=== PATIENT | male | born 1965 | race Hispanic/Latino ===

== ENCOUNTER 2018-09-23 16:28 | Emergency (ER) | payer SELFPAY ==
[2018-09-23 16:44] VITALS: BP 117/76
[2018-09-23] MEDS ORDERED: NACL 0.9% 1000 ML 1,000 ML IV ONE (16:44)
[2018-09-23] MEDS ORDERED: NORCO 10/325 PO ONE (16:50)
[2018-09-23 17:00] LABS: Basophils # (Auto) 0.1 K/mm3 (0.0-0.1); Basophils % (Auto) 1.5 % (0.0-1.8); Eosinophils # (Auto) 0.1 K/mm3 (0.0-0.4); Lymphocytes # (Auto) 1.3 K/mm3 (1.2-5.4); Lymphocytes % (Auto) 21.9 % (13.4-35.0); Mean Corpuscular HGB Conc 30 % (32-34); Monocytes # (Auto) 0.5 K/mm3 (0.0-0.8); Monocytes % (Auto) 8.5 % (0.0-7.3); Platelet Count 498 K/mm3 (140-440); Red Blood Count 5.97 M/mm3 (3.65-5.03); Red Cell Distribution Width 19.8 % (13.2-15.2)
[2018-09-23 17:01] LABS: Hematocrit 39.6 % (35.5-45.6); Hemoglobin 11.9 gm/dl (11.8-15.2); Mean Corpuscular Volume 66 fl (84-94)
[2018-09-23 17:19] LABS: Alanine Aminotransferase 19 units/L (7-56); Albumin 4.6 g/dL (3.9-5); BUN/Creatinine Ratio 16; Blood Urea Nitrogen 11 mg/dL (9-20); Calcium 9.5 mg/dL (8.4-10.2); Hemolysis Index 7
--- NOTE | 2018-09-23 20:30 | Emergency Department Report ---
ED General Adult HPI - General Chief complaint: Nausea/Vomiting/Diarrhea Stated complaint: (R) LEG PAIN Time Seen by Provider: 09/23/18 19:09 Source: patient Mode of arrival: Wheelchair Limitations: No Limitations - History of Present Illness Initial comments: 52-year-old male with past medical history of COPD, hypertension, DPT with a question therapy as well as Shepherd filter and inguinal stents, left AKA, right BKA presents to emergency department complaining of pain to his right leg from just above his right knee down associated with some nausea is worried that he may have another blood clot in his leg. He is currently taking liquids which she has restarted the last 2 or 3 days but has been out of previous blood thinner about one week prior to starting that medication. Denies any shortness of breath, palpitations, hemoptysis, hematemesis, presyncope, headache, trauma. No numbness or tingling. He reports. Taken all the other occasion as prescribed. No complication. States that he also ran out of his Roxicodone, which is another reason for his visit to the emergency department due to follow up pain management for a refill, this coming week. Radiation: non-radiation Severity scale (0 -10): 8 - Related Data Home Medications Medication Instructions Recorded Confirmed Last Taken ALPRAZolam [Xanax TAB] 0.5 mg PO TID PRN 09/15/18 09/15/18 09/09/18 Amitriptyline [Elavil] 10 mg PO QHS 09/15/18 09/15/18 09/08/18 Aspirin [Aspirin BABY CHEW TAB] 81 mg PO QDAY 09/15/18 09/15/18 09/09/18 Gabapentin [Neurontin] 1,200 mg PO Q8HR 09/15/18 09/15/18 09/09/18 Methadone [Dolophine] 40 mg PO BID 09/15/18 09/15/18 Unknown Metoprolol Succinate [Toprol Xl] 50 mg PO BID 09/15/18 09/15/18 09/09/18 Tamsulosin HCl [Flomax] 0.4 mg PO DAILY 09/15/18 09/15/18 09/09/18 hydroCHLOROthiazide 12.5 mg PO DAILY 09/15/18 09/15/18 09/09/18 [Hydrochlorothiazide] Previous Rx's Medication Instructions Recorded Last Taken Type Apixaban [Eliquis] 5 mg PO BID 30 Days tablet 09/17/18 Unknown Rx Apixaban [Eliquis] 10 mg PO BID #28 tablet 09/17/18 Unknown Rx oxyCODONE [Roxicodone TAB] 30 mg PO Q4H PRN #7 tablet 09/17/18 Unknown Rx Allergies Allergy/AdvReac Type Severity Reaction Status Date / Time No Known Allergies Allergy Unverified 09/15/18 10:10 ED Review of Systems ROS: Stated complaint: (R) LEG PAIN Other details as noted in HPI Constitutional: denies: chills, fever Eyes: denies: eye pain, eye discharge, vision change ENT: denies: ear pain, throat pain Respiratory: denies: cough, shortness of breath, wheezing Cardiovascular: denies: chest pain, palpitations Endocrine: no symptoms reported Gastrointestinal: denies: abdominal pain, nausea, diarrhea Genitourinary: denies: urgency, dysuria Musculoskeletal: denies: back pain, joint swelling, arthralgia Skin: denies: rash, lesions Neurological: denies: headache, weakness, paresthesias Psychiatric: denies: anxiety, depression Hematological/Lymphatic: denies: easy bleeding, easy bruising ED Past Medical Hx - Past Medical History Hx Hypertension: Yes Hx Diabetes: Yes Hx Deep Vein Thrombosis: Yes Hx COPD: Yes Additional medical history: PVD - Surgical History Past Surgical History?: Yes Additional Surgical History: left AKA. right BKA - Social History Smoking Status: Never Smoker Substance Use Type: None - Medications Home Medications: Home Medications Medication Instructions Recorded Confirmed Last Taken Type ALPRAZolam [Xanax TAB] 0.5 mg PO TID PRN 09/15/18 09/15/18 09/09/18 History Amitriptyline [Elavil] 10 mg PO QHS 09/15/18 09/15/18 09/08/18 History Aspirin [Aspirin BABY CHEW TAB] 81 mg PO QDAY 09/15/18 09/15/18 09/09/18 History Gabapentin [Neurontin] 1,200 mg PO Q8HR 09/15/18 09/15/18 09/09/18 History Methadone [Dolophine] 40 mg PO BID 09/15/18 09/15/18 Unknown History Metoprolol Succinate [Toprol Xl] 50 mg PO BID 09/15/18 09/15/18 09/09/18 History Tamsulosin HCl [Flomax] 0.4 mg PO DAILY 09/15/18 09/15/18 09/09/18 History hydroCHLOROthiazide 12.5 mg PO DAILY 09/15/18 09/15/18 09/09/18 History [Hydrochlorothiazide] Apixaban [Eliquis] 5 mg PO BID 30 Days tablet 09/17/18 Unknown Rx Apixaban [Eliquis] 10 mg PO BID #28 tablet 09/17/18 Unknown Rx oxyCODONE [Roxicodone TAB] 30 mg PO Q4H PRN #7 tablet 09/17/18 Unknown Rx ED Physical Exam - General Limitations: No Limitations General appearance: alert, in no apparent distress, other - Head Head exam: Present: atraumatic, normocephalic - Eye Eye exam: Present: normal appearance, PERRL, EOMI Pupils: Present: normal accommodation - ENT ENT exam: Present: normal exam, mucous membranes moist - Neck Neck exam: Present: normal inspection, full ROM. Absent: tenderness, lymphadenopathy - Respiratory Respiratory exam: Present: normal lung sounds bilaterally. Absent: respiratory distress, wheezes, rales, rhonchi, chest wall tenderness, accessory muscle use, decreased breath sounds - Cardiovascular Cardiovascular Exam: Present: regular rate, normal rhythm. Absent: systolic murmur, diastolic murmur, rubs, gallop - GI/Abdominal GI/Abdominal exam: Present: soft, normal bowel sounds - Rectal Rectal exam: Present: deferred - Extremities Exam Extremities exam: Present: normal inspection, other (right BKA. No cellulitis noted. No swelling. No masses appreciated. Normal sensation) - Back Exam Back exam: Present: normal inspection, full ROM - Neurological Exam Neurological exam: Present: alert, oriented X3, CN II-XII intact - Psychiatric Psychiatric exam: Present: normal affect, normal mood - Skin Skin exam: Present: warm, dry, intact, normal color. Absent: rash ED Course Vital Signs 09/23/18 16:41 Temperature 97.4 F L Pulse Rate 78 Respiratory 18 Rate Blood Pressure 117/76 O2 Sat by Pulse 97 Oximetry - Consultations Consultation #1: 09/23/18 20:34 Case was discussed with Dr. Stinson. Patient BKTaylor and AKA. His Shepherd filter was primary suspicion for a deep 2 cm suspicion pain management. Patientstates this present time. The patient already treated for a DVT pain. We'll have him follow up with his primary care provider/pain management ED Medical Decision Making - Lab Data Result diagrams: 09/23/18 16:50 09/23/18 16:50 Critical care attestation.: If time is entered above; I have spent that time in minutes in the direct care of this critically ill patient, excluding procedure time. ED Disposition Clinical Impression: Chronic pain Disposition: DC-01 TO HOME OR SELFCARE Is pt being admited?: No Does the pt Need Aspirin: No Condition: Stable Instructions: Chronic Pain (ED) Referrals: PRIMARY CARE,MD [Primary Care Provider] - 3-5 Days (Please keep appointment with her chronic pain management for refill of your pain medication and further evaluation of-year-old chronic pain.)
[2018-09-23] MEDS ORDERED: SUBLIMAZE IM STA (20:31)
[2018-09-23] MEDS ORDERED: TORADOL IM ONE (20:43)
[2018-09-23] MEDS ORDERED: ZOFRAN ODT PO ONE (20:56)
== END 2018-09-23 21:01 | disposition home or self-care (01) ==
LOC: ED 16:28
DX: G89.4 Chronic pain syndrome (principal); M79.604 Pain in right leg; J44.9 Chronic obstructive pulmonary disease, unspecified; E11.9 Type 2 diabetes mellitus without complications; I73.9 Peripheral vascular disease, unspecified; I10 Essential (primary) hypertension; Z89.612 Acquired absence of left leg above knee; Z89.511 Acquired absence of right leg below knee; Z88.8 Allergy status to other drugs, medicaments and biological substances; Z86.718 Personal history of other venous thrombosis and embolism; Z79.82 Long term (current) use of aspirin
CPT/HCPCS: 36415; 80053; 85025; 96372; 99283; J1885; J3010; Q0162

== ENCOUNTER 2018-09-25 09:09 | Emergency (ER) | payer SELFPAY ==
[2018-09-25] MEDS ORDERED: BENTYL IM ONE (09:35)
[2018-09-25] MEDS ORDERED: ZOFRAN IV ONE (09:35)
[2018-09-25] MEDS ORDERED: NACL 0.9% 1000 ML 1,000 ML IV ONE (09:35)
[2018-09-25 10:12] LABS: Basophils # (Auto) 0.1 K/mm3 (0.0-0.1); Basophils % (Auto) 1.6 % (0.0-1.8); Eosinophils % (Auto) 0.7 % (0.0-4.3); Hematocrit 38.1 % (35.5-45.6); Hemoglobin 11.8 gm/dl (11.8-15.2); Lymphocytes # (Auto) 1.1 K/mm3 (1.2-5.4); Lymphocytes % (Auto) 22.7 % (13.4-35.0); Mean Corpuscular HGB Conc 31 % (32-34); Monocytes # (Auto) 0.5 K/mm3 (0.0-0.8); Monocytes % (Auto) 9.6 % (0.0-7.3); Platelet Count 458 K/mm3 (140-440); Red Blood Count 5.73 M/mm3 (3.65-5.03)
[2018-09-25 10:13] LABS: Mean Corpuscular Volume 67 fl (84-94); Red Cell Distribution Width 20.4 % (13.2-15.2)
--- NOTE | 2018-09-25 10:27 | Emergency Department Report ---
ED N/V/D HPI - General Chief complaint: Nausea/Vomiting/Diarrhea Stated complaint: FLU LIKE Time Seen by Provider: 09/25/18 09:17 Source: patient, EMS Mode of arrival: Stretcher Limitations: No Limitations - History of Present Illness Initial comments: 52-year-old male presents to ED with complaint of nausea, vomiting, diarrhea 3 weeks. Patient states he isn't able to keep anything down. He states he believes he is withdrawing from his pain medication. Patient was on methadone and Roxicodone, but states has not had these medications in 3 weeks. Upon chart review, it appears patient was here one week ago for leg pain. Patient was discharged with prescription for Roxicodone, however states he was unable to get the prescription filled because he does not yet have Medicaid. MD complaint: nausea, vomiting, diarrhea, abdominal pain -: week(s) (3) Description of Vomiting: food contents, watery Description of Diarrhea: water Associated Abdominal Pain: Yes Location: diffuse Radiation: none Severity: mild Quality: cramping Consistency: intermittent Improves with: none Worsens with: none Context: other (opiate withdrawal) - Related Data Home Medications Medication Instructions Recorded Confirmed Last Taken ALPRAZolam [Xanax TAB] 0.5 mg PO TID PRN 09/15/18 09/15/18 09/09/18 Amitriptyline [Elavil] 10 mg PO QHS 09/15/18 09/15/18 09/08/18 Aspirin [Aspirin BABY CHEW TAB] 81 mg PO QDAY 09/15/18 09/15/18 09/09/18 Gabapentin [Neurontin] 1,200 mg PO Q8HR 09/15/18 09/15/18 09/09/18 Methadone [Dolophine] 40 mg PO BID 09/15/18 09/15/18 Unknown Metoprolol Succinate [Toprol Xl] 50 mg PO BID 09/15/18 09/15/18 09/09/18 Tamsulosin HCl [Flomax] 0.4 mg PO DAILY 09/15/18 09/15/18 09/09/18 hydroCHLOROthiazide 12.5 mg PO DAILY 09/15/18 09/15/18 09/09/18 [Hydrochlorothiazide] Previous Rx's Medication Instructions Recorded Last Taken Type Apixaban [Eliquis] 5 mg PO BID 30 Days tablet 09/17/18 Unknown Rx Apixaban [Eliquis] 10 mg PO BID #28 tablet 09/17/18 Unknown Rx oxyCODONE [Roxicodone TAB] 30 mg PO Q4H PRN #7 tablet 09/17/18 Unknown Rx Dicyclomine [Bentyl] 20 mg PO QID PRN #20 tablet 09/25/18 Unknown Rx Ondansetron [Zofran Odt] 4 mg PO Q8HR PRN #20 tab.rapdis 09/25/18 Unknown Rx Promethazine [Phenergan TAB] 25 mg PO Q6HR PRN #20 tab 09/25/18 Unknown Rx Allergies Allergy/AdvReac Type Severity Reaction Status Date / Time No Known Allergies Allergy Unverified 09/15/18 10:10 ED Review of Systems ROS: Stated complaint: FLU LIKE Other details as noted in HPI Comment: All other systems reviewed and negative Constitutional: denies: chills, fever Gastrointestinal: abdominal pain, nausea, vomiting, diarrhea ED Past Medical Hx - Past Medical History Hx Hypertension: Yes Hx Diabetes: Yes Hx Deep Vein Thrombosis: Yes Hx COPD: Yes Additional medical history: PVD - Surgical History Additional Surgical History: left AKA. right BKA - Social History Smoking Status: Never Smoker - Medications Home Medications: Home Medications Medication Instructions Recorded Confirmed Last Taken Type ALPRAZolam [Xanax TAB] 0.5 mg PO TID PRN 09/15/18 09/15/18 09/09/18 History Amitriptyline [Elavil] 10 mg PO QHS 09/15/18 09/15/18 09/08/18 History Aspirin [Aspirin BABY CHEW TAB] 81 mg PO QDAY 09/15/18 09/15/18 09/09/18 History Gabapentin [Neurontin] 1,200 mg PO Q8HR 09/15/18 09/15/18 09/09/18 History Methadone [Dolophine] 40 mg PO BID 09/15/18 09/15/18 Unknown History Metoprolol Succinate [Toprol Xl] 50 mg PO BID 09/15/18 09/15/18 09/09/18 History Tamsulosin HCl [Flomax] 0.4 mg PO DAILY 09/15/18 09/15/18 09/09/18 History hydroCHLOROthiazide 12.5 mg PO DAILY 09/15/18 09/15/18 09/09/18 History [Hydrochlorothiazide] Apixaban [Eliquis] 5 mg PO BID 30 Days tablet 09/17/18 Unknown Rx Apixaban [Eliquis] 10 mg PO BID #28 tablet 09/17/18 Unknown Rx oxyCODONE [Roxicodone TAB] 30 mg PO Q4H PRN #7 tablet 09/17/18 Unknown Rx Dicyclomine [Bentyl] 20 mg PO QID PRN #20 tablet 09/25/18 Unknown Rx Ondansetron [Zofran Odt] 4 mg PO Q8HR PRN #20 tab.rapdis 09/25/18 Unknown Rx Promethazine [Phenergan TAB] 25 mg PO Q6HR PRN #20 tab 09/25/18 Unknown Rx ED Physical Exam - General Limitations: No Limitations General appearance: alert, in no apparent distress - Head Head exam: Present: atraumatic, normocephalic - Eye Eye exam: Present: normal appearance - ENT ENT exam: Present: mucous membranes moist - Neck Neck exam: Present: normal inspection - Respiratory Respiratory exam: Present: normal lung sounds bilaterally. Absent: respiratory distress - Cardiovascular Cardiovascular Exam: Present: regular rate, normal rhythm - GI/Abdominal GI/Abdominal exam: Present: soft, tenderness (mild diffuse tenderness). Absent: distended, guarding, rebound - Extremities Exam Extremities exam: Present: other (amputations present bilateral lower ex tremities) - Neurological Exam Neurological exam: Present: alert, oriented X3 - Psychiatric Psychiatric exam: Present: normal affect, normal mood - Skin Skin exam: Present: warm, dry, intact, normal color ED Course Vital Signs 09/25/18 09/25/18 09/25/18 09:54 09:56 13:14 Temperature 97.7 F Pulse Rate 60 72 Respiratory 18 18 16 Rate Blood Pressure 117/79 112/72 [Left] O2 Sat by Pulse 99 99 99 Oximetry ED Medical Decision Making - Lab Data Result diagrams: 09/25/18 09:40 09/25/18 09:40 - Medical Decision Making Patient here in the ED for symptoms due to opiate withdrawal. Patient reports nausea, vomiting, diarrhea 3 weeks. However signs are normal, labs show no sign of dehydration, renal failure, hypokalemia. Patient given IV fluids, Zofran, Bentyl, 1 Percocet tab. Patient was admitted and discharged week ago. He is given a prescription for oxycodone, which he states he has been unable to get it filled due to financial issues. Patient will not be given another prescription for this medication. Advised the patient follow up with his regular doctor, return precautions given. - Differential Diagnosis hypokalemia, ARF, dehydration Critical care attestation.: If time is entered above; I have spent that time in minutes in the direct care of this critically ill patient, excluding procedure time. ED Disposition Clinical Impression: Vomiting and diarrhea, Opioid withdrawal Disposition: DC- TO HOME OR SELFCARE Is pt being admited?: No Condition: Stable Instructions: Opioid Withdrawal (ED) Prescriptions: Dicyclomine [Bentyl] 20 mg PO QID PRN #20 tablet PRN Reason: abdominal pain Ondansetron [Zofran Odt] 4 mg PO Q8HR PRN #20 tab.rapdis PRN Reason: Vomiting Promethazine [Phenergan TAB] 25 mg PO Q6HR PRN #20 tab PRN Reason: Nausea Referrals: PRIMARY CARE, [Primary Care Provider] - 3-5 Days Time of Disposition: 11:52
[2018-09-25 10:31] LABS: Alanine Aminotransferase 16 units/L (7-56); Albumin 4.5 g/dL (3.9-5); BUN/Creatinine Ratio 15; Bilirubin,Direct 0.3 mg/dL (0-0.2); Blood Urea Nitrogen 12 mg/dL (9-20); Calcium 9.6 mg/dL (8.4-10.2); Hemolysis Index 4
[2018-09-25] MEDS ORDERED: PERCOCET 5/325 PO ONE (11:19)
[2018-09-25 11:59] LABS: Bacteria,Urine 1+ /HPF (Negative); Bilirubin,Urine NEG (Negative); Blood,Urine NEG (Negative); Color,Urine Yellow (Yellow); Mucus,Urine FEW /HPF
[2018-09-25 13:49] VITALS: BP 112/72
== END 2018-09-25 13:50 | disposition home or self-care (01) ==
LOC: ED 09:09
DX: R11.2 Nausea with vomiting, unspecified (principal); R19.7 Diarrhea, unspecified; F11.120 Opioid abuse with intoxication, uncomplicated; I10 Essential (primary) hypertension; E11.9 Type 2 diabetes mellitus without complications; J44.9 Chronic obstructive pulmonary disease, unspecified; I73.9 Peripheral vascular disease, unspecified; Z86.718 Personal history of other venous thrombosis and embolism; Z79.82 Long term (current) use of aspirin; Z89.612 Acquired absence of left leg above knee; Z89.511 Acquired absence of right leg below knee
CPT/HCPCS: 36415; 80048; 80076; 81001; 83690; 85025; 96361; 96372; 96374; 99284; J0500; J2405; J7030

== ENCOUNTER 2018-10-05 15:54 | Inpatient (IN) | payer SELFPAY ==
--- NOTE | 2018-10-05 16:26 | Emergency Department Report ---
ED Lower Extremity HPI - General Chief Complaint: Abdominal Pain Stated Complaint: LT LEG PAIN Time Seen by Provider: 10/05/18 16:10 Source: patient, EMS Mode of arrival: Stretcher Limitations: Physical Limitation - History of Present Illness Initial Comments: She is 52-year-old male presents emergency room with complaints of left leg pain times one day and lower abdominal pain 1 day. Patient states that nausea and vomiting times a week. Patient states his pain is 7 out of 10 in both his abdomen and his lower leg. Patient denies trauma. 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 Patient st ates he is not taking liquids. Patient states he only blood thinner is taking his Plavix. Patient states the pain is better with rest and worse with palpation and movement. MD Complaint: other (left leg pain./ no trauma) -: Sudden Injury: Leg: Left Place: home Severity: severe Severity scale (0 -10): 10 Improves With: rest Worsens With: movement, palpation Associated Symptoms: unable to bear weight Treatments Prior to Arrival: NSAIDS - Related Data Home Medications Medication Instructions Recorded Confirmed Last Taken ALPRAZolam [Xanax TAB] 0.5 mg PO TID PRN 09/15/18 09/15/18 09/09/18 Amitriptyline [Elavil] 10 mg PO QHS 09/15/18 09/15/18 09/08/18 Aspirin [Aspirin BABY CHEW TAB] 81 mg PO QDAY 09/15/18 09/15/18 09/09/18 Gabapentin [Neurontin] 1,200 mg PO Q8HR 09/15/18 09/15/18 09/09/18 Methadone [Dolophine] 40 mg PO BID 09/15/18 09/15/18 Unknown Metoprolol Succinate [Toprol Xl] 50 mg PO BID 09/15/18 09/15/18 09/09/18 Tamsulosin HCl [Flomax] 0.4 mg PO DAILY 09/15/18 09/15/18 09/09/18 hydroCHLOROthiazide 12.5 mg PO DAILY 09/15/18 09/15/18 09/09/18 [Hydrochlorothiazide] Previous Rx's Medication Instructions Recorded Last Taken Type Apixaban [Eliquis] 5 mg PO BID 30 Days tablet 09/17/18 Unknown Rx Apixaban [Eliquis] 10 mg PO BID #28 tablet 09/17/18 Unknown Rx oxyCODONE [Roxicodone TAB] 30 mg PO Q4H PRN #7 tablet 09/17/18 Unknown Rx Dicyclomine [Bentyl] 20 mg PO QID PRN #20 tablet 09/25/18 Unknown Rx Ondansetron [Zofran Odt] 4 mg PO Q8HR PRN #20 tab.rapdis 09/25/18 Unknown Rx Promethazine [Phenergan TAB] 25 mg PO Q6HR PRN #20 tab 09/25/18 Unknown Rx Allergies Allergy/AdvReac Type Severity Reaction Status Date / Time No Known Allergies Allergy Unverified 09/15/18 10:10 ED Review of Systems ROS: Stated complaint: LT LEG PAIN Other details as noted in HPI Constitutional: denies: chills, fever Eyes: denies: eye pain, eye discharge, vision change ENT: denies: ear pain, throat pain Respiratory: denies: cough, shortness of breath, wheezing Cardiovascular: denies: chest pain, palpitations Endocrine: no symptoms reported Gastrointestinal: abdominal pain. denies: nausea, diarrhea Genitourinary: denies: urgency, dysuria Musculoskeletal: denies: back pain, joint swelling, arthralgia Skin: denies: rash, lesions Neurological: denies: headache, weakness, paresthesias Psychiatric: denies: anxiety, depression Hematological/Lymphatic: denies: easy bleeding, easy bruising ED Past Medical Hx - Past Medical History Previous Medical History?: Yes Hx Hypertension: Yes Hx Diabetes: Yes Hx Deep Vein Thrombosis: Yes Hx COPD: Yes Additional medical history: PVD - Surgical History Past Surgical History?: Yes Additional Surgical History: left AKA. right BKA , bilat lower extremity stents - Family History Family history: no significant - Social History Smoking Status: Never Smoker Substance Use Type: Alcohol - Medications Home Medications: Home Medications Medication Instructions Recorded Confirmed Last Taken Type ALPRAZolam [Xanax TAB] 0.5 mg PO TID PRN 09/15/18 09/15/18 09/09/18 History Amitriptyline [Elavil] 10 mg PO QHS 09/15/18 09/15/18 09/08/18 History Aspirin [Aspirin BABY CHEW TAB] 81 mg PO QDAY 09/15/18 09/15/18 09/09/18 History Gabapentin [Neurontin] 1,200 mg PO Q8HR 09/15/18 09/15/18 09/09/18 History Methadone [Dolophine] 40 mg PO BID 09/15/18 09/15/18 Unknown History Metoprolol Succinate [Toprol Xl] 50 mg PO BID 09/15/18 09/15/18 09/09/18 History Tamsulosin HCl [Flomax] 0.4 mg PO DAILY 09/15/18 09/15/18 09/09/18 History hydroCHLOROthiazide 12.5 mg PO DAILY 09/15/18 09/15/18 09/09/18 History [Hydrochlorothiazide] Apixaban [Eliquis] 5 mg PO BID 30 Days tablet 09/17/18 Unknown Rx Apixaban [Eliquis] 10 mg PO BID #28 tablet 09/17/18 Unknown Rx oxyCODONE [Roxicodone TAB] 30 mg PO Q4H PRN #7 tablet 09/17/18 Unknown Rx Dicyclomine [Bentyl] 20 mg PO QID PRN #20 tablet 09/25/18 Unknown Rx Ondansetron [Zofran Odt] 4 mg PO Q8HR PRN #20 tab.rapdis 09/25/18 Unknown Rx Promethazine [Phenergan TAB] 25 mg PO Q6HR PRN #20 tab 09/25/18 Unknown Rx ED Physical Exam - General Limitations: Physical Limitation General appearance: alert, in no apparent distress - Head Head exam: Present: atraumatic, normocephalic - Eye Eye exam: Present: normal appearance, PERRL Pupils: Present: normal accommodation - ENT ENT exam: Present: mucous membranes dry - Neck Neck exam: Present: normal inspection - Respiratory Respiratory exam: Present: normal lung sounds bilaterally. Absent: respiratory distress - Cardiovascular Cardiovascular Exam: Present: regular rate, normal rhythm. Absent: systolic murmur, diastolic murmur, rubs, gallop - GI/Abdominal GI/Abdominal exam: Present: soft, tenderness (devorah LQ ttp), normal bowel sounds - Rectal Rectal exam: Present: deferred - Extremities Exam Extremities exam: Present: other (left lower extremity [id number] amputation. Left lower extremity tenderness to palpation. Right lower extremity below the knee amputation.) - Back Exam Back exam: Present: normal inspection - Neurological Exam Neurological exam: Present: alert, oriented X3 - Psychiatric Psychiatric exam: Present: normal affect, normal mood - Skin Skin exam: Present: warm, dry, intact, normal color. Absent: rash ED Course Vital Signs 10/05/18 10/05/18 10/05/18 16:02 16:03 16:04 Pulse Rate 79 80 77 Respiratory 11 L 19 17 Rate Blood Pressure 130/88 130/88 O2 Sat by Pulse Oximetry 10/05/18 10/05/18 10/05/18 16:06 16:08 16:10 Pulse Rate 74 82 77 Respiratory 21 19 21 Rate Blood Pressure 130/88 130/88 130/88 O2 Sat by Pulse 99 99 98 Oximetry 10/05/18 10/05/18 10/05/18 16:12 16:14 16:16 Pulse Rate 86 85 75 Respiratory 17 28 H 18 Rate Blood Pressure 130/88 130/88 144/78 O2 Sat by Pulse 99 99 100 Oximetry 10/05/18 10/05/18 10/05/18 16:18 16:20 16:22 Pulse Rate 68 70 87 Respiratory 12 21 27 H Rate Blood Pressure 144/78 144/78 144/78 O2 Sat by Pulse 100 95 100 Oximetry 10/05/18 10/05/18 10/05/18 16:24 16:26 16:28 Pulse Rate 62 82 78 Respiratory 17 12 19 Rate Blood Pressure 144/78 144/78 144/78 O2 Sat by Pulse 98 99 99 Oximetry 10/05/18 10/05/18 10/05/18 16:30 16:32 16:34 Pulse Rate 75 74 70 Respiratory 17 22 16 Rate Blood Pressure 138/85 138/85 138/85 O2 Sat by Pulse 99 99 98 Oximetry 10/05/18 10/05/18 10/05/18 16:36 16:38 16:40 Pulse Rate 70 69 Respiratory 12 14 Rate Blood Pressure 138/85 138/85 144/78 O2 Sat by Pulse 100 97 98 Oximetry 10/05/18 10/05/18 10/05/18 16:42 16:44 16:46 Pulse Rate Respiratory Rate Blood Pressure 144/78 144/78 144/78 O2 Sat by Pulse 98 98 99 Oximetry 10/05/18 10/05/18 10/05/18 16:48 16:50 16:52 Pulse Rate Respiratory Rate Blood Pressure 144/78 144/78 144/78 O2 Sat by Pulse 97 95 96 Oximetry 10/05/18 10/05/18 10/05/18 16:54 16:56 16:58 Pulse Rate Respiratory Rate Blood Pressure 144/78 144/78 144/78 O2 Sat by Pulse 96 95 95 Oximetry 10/05/18 10/05/18 10/05/18 17:00 17:02 17:04 Pulse Rate Respiratory Rate Blood Pressure 144/78 144/78 144/78 O2 Sat by Pulse 95 94 92 Oximetry 10/05/18 10/05/18 10/05/18 17:06 17:07 22:08 Pulse Rate 74 Respiratory 20 Rate Blood Pressure 144/78 144/78 122/76 O2 Sat by Pulse 96 99 Oximetry 10/05/18 10/05/18 10/05/18 22:10 22:12 22:14 Pulse Rate 77 81 77 Respiratory 20 19 17 Rate Blood Pressure 122/76 122/76 122/76 O2 Sat by Pulse Oximetry 10/05/18 10/05/18 10/05/18 22:16 22:18 22:20 Pulse Rate 81 82 84 Respiratory 14 32 H 18 Rate Blood Pressure 122/76 122/76 122/76 O2 Sat by Pulse Oximetry 10/05/18 10/05/18 10/05/18 22:22 22:24 22:26 Pulse Rate 71 73 74 Respiratory 21 14 17 Rate Blood Pressure 122/76 122/76 122/76 O2 Sat by Pulse Oximetry 10/05/18 10/05/18 10/05/18 22:28 22:30 22:32 Pulse Rate 76 82 78 Respiratory 16 18 18 Rate Blood Pressure 122/76 127/78 127/78 O2 Sat by Pulse Oximetry 10/05/18 10/05/18 10/05/18 22:34 22:36 22:38 Pulse Rate 76 72 79 Respiratory 20 22 19 Rate Blood Pressure 127/78 127/78 127/78 O2 Sat by Pulse Oximetry 10/05/18 10/05/18 10/05/18 22:40 22:42 22:44 Pulse Rate 80 77 78 Respiratory 20 18 18 Rate Blood Pressure 127/78 127/78 127/78 O2 Sat by Pulse Oximetry 10/05/18 10/05/18 10/05/18 22:46 22:48 22:50 Pulse Rate 78 79 74 Respiratory 20 20 12 Rate Blood Pressure 127/78 127/78 127/78 O2 Sat by Pulse Oximetry 10/05/18 10/05/18 10/05/18 22:52 22:54 22:56 Pulse Rate 75 76 70 Respiratory 20 18 22 Rate Blood Pressure 127/78 127/78 127/78 O2 Sat by Pulse Oximetry 10/05/18 10/05/18 10/05/18 22:58 23:00 23:01 Pulse Rate 81 74 75 Respiratory 19 24 22 Rate Blood Pressure 127/78 131/79 131/79 O2 Sat by Pulse Oximetry 10/05/18 10/05/18 10/05/18 23:02 23:04 23:06 Pulse Rate 76 77 75 Respiratory 20 18 20 Rate Blood Pressure 131/79 131/79 131/79 O2 Sat by Pulse Oximetry 10/05/18 10/05/18 10/05/18 23:08 23:10 23:12 Pulse Rate 85 74 77 Respiratory 15 18 14 Rate Blood Pressure 131/79 131/79 131/79 O2 Sat by Pulse Oximetry 10/05/18 10/05/18 10/05/18 23:14 23:16 23:18 Pulse Rate 74 75 80 Respiratory 19 15 21 Rate Blood Pressure 131/79 131/79 131/79 O2 Sat by Pulse Oximetry 10/05/18 10/05/18 10/05/18 23:20 23:22 23:24 Pulse Rate 72 71 74 Respiratory 20 22 24 Rate Blood Pressure 131/79 131/79 131/79 O2 Sat by Pulse 98 98 Oximetry 10/05/18 10/05/18 10/05/18 23:26 23:28 23:30 Pulse Rate 75 77 73 Respiratory 21 18 21 Rate Blood Pressure 131/79 131/79 125/72 O2 Sat by Pulse 97 98 96 Oximetry 10/05/18 10/05/18 10/05/18 23:32 23:34 23:36 Pulse Rate 79 73 71 Respiratory 20 17 20 Rate Blood Pressure 125/72 125/72 125/72 O2 Sat by Pulse Oximetry 10/05/18 10/05/18 10/05/18 23:38 23:40 23:42 Pulse Rate 73 72 74 Respiratory 20 17 20 Rate Blood Pressure 125/72 125/72 125/72 O2 Sat by Pulse Oximetry 10/05/18 23:44 Pulse Rate 71 Respiratory 18 Rate Blood Pressure 125/72 O2 Sat by Pulse Oximetry - Reevaluation(s) Reevaluation #1: Discussed all results and plan of care with patient. Patient agrees to plan of care and admission. 10/05/18 21:47 - Consultations Consultation #1: Vascular Surgery consult. Dr. Espino to see the patient in the morning. She wants patient placed on heparin drip and admitted to the hospitalist service. 10/05/18 21:40 Consultation #2: Hospice consult for admission. Hospitalist to admit patient assume care patient. 10/05/18 21:47 ED Lower Extremity MDM - Lab Data Result diagrams: 10/05/18 21:50 10/05/18 16:54 - Radiology Data Radiology results: report reviewed FINAL REPORT PROCEDURE: CT ABDOMEN PELVIS W CON TECHNIQUE: Computerized axial tomography of the abdomen and pelvis was performed after the IV injection of iodinated nonionic contrast. HISTORY: Abdominal Pain COMPARISON: No prior studies are available for comparison. FINDINGS: Visualized lower thorax: No significant abnormality. Liver: Normal size and attenuation. There is a 3 centimeter low-density area along the falciform ligament suggesting focal fatty infiltration. Spleen: Normal size and attenuation. Gallbladder and biliary system: Normal. Pancreas: Normal. Adrenals: Normal. Kidneys: There are no kidney stones or ureteral stones. There is no hydronephrosis.. GI tract: There is no bowel obstruction, colitis or enteritis. The appendix is slightly thickened at approximately 7 millimeters. However there are no inflammatory changes. Clinical correlation suggested.. Lymph nodes and mesentery: Normal. Vasculature: There is complete occlusion of the left common and external iliac arteries and common femoral artery. There is no aortic aneurysm. There is IVC filter.. Bladder: Normal. Reproductive organs: Normal. Peritoneum: There is no ascites or free air, abscess or adenopathy.. Musculoskeletal structures: No significant abnormality. Other: None. IMPRESSION: There is a 3 centimeter low-density area along the falciform ligament suggesting focal fatty infiltration. There are no kidney stones or ureteral stones. There is no hydronephrosis.. There is no bowel obstruction, colitis or enteritis. The appendix is slightly thickened at approximately 7 millimeters. However there are no inflammatory changes. Clinical correlation suggested.. There is complete occlusion of the left common and external iliac arteries and common femoral artery. There is no aortic aneurysm. There is IVC filter.. There is no ascites or free air, abscess or adenopathy.. AYAD MASCORRO Male : 1965 MedRec# [id number] 10/05/18 19:08 - Radiology Dept. Note by SUNNI PEREZ [facility] Num: [id number] : 1965 Patient Age: 52 P[address] Bonilla right leg partial compression SFV dist to popv. Possible thrombus in sfv and popv. on left leg Partial comp at cfv to sfv to dfv; possible thrombus cfv to sfv to dfv. Initialized on 10/05/18 19:08 - END OF NOTE - Medical Decision Making H and is 52-year-old mane's emergency room with complaints of abdominal pain and left leg pain. Patient underwent multiple arterial occlusions and DVTs. Patient was admitted to the hospitalist service for further evaluation treatme nt. Hospitalist consultation done. Vascular surgery consultation done. Labs unremarkable except for anemia. Full report given to hospitalist group CTA done and shows femoral and iliac occlusions. DVT study done with Doppler and shows multiple DVTs and SVTs. - Differential Diagnosis DVT. PAD. Occlusions. Abdominal pain. Leg pain. Critical Care Time: Yes Critical care attestation.: If time is entered above; I have spent that time in minutes in the direct care of this critically ill patient, excluding procedure time. Critical Care Time: 45 minutes ED Disposition Clinical Impression: Femoral artery occlusion, left, Leg pain, left, PAD (peripheral artery disease), Arterial occlusion Abdominal pain Qualifiers: Abdominal location: generalized Qualified Code(s): R10.84 - Generalized abdominal pain DVT (deep venous thrombosis) Qualifiers: DVT location: lower extremity Affected thrombotic vein of extremity: other lower extremity vein Chronicity: acute Laterality: left Qualified Code(s): I82.492 - Acute embolism and thrombosis of other specified deep vein of left lower extremity Anemia Qualifiers: Anemia type: unspecified type Qualified Code(s): D64.9 - Anemia, unspecified Disposition: OP ADMIT IP TO THIS HOSP Is pt being admited?: Yes Does the pt Need Aspirin: No Condition: Critical Time of Disposition: 21:45
[2018-10-05] MEDS ORDERED: DILAUDID ONE ×2 (16:27→21:56)
[2018-10-05] MEDS ORDERED: DILAUDID IV ONE ×3 (16:30→22:06)
[2018-10-05 17:29] LABS: Basophils % (Auto) 0.9 % (0.0-1.8); Eosinophils # (Auto) 0.1 K/mm3 (0.0-0.4); Lymphocytes # (Auto) 1.2 K/mm3 (1.2-5.4); Lymphocytes % (Auto) 28.8 % (13.4-35.0); Mean Corpuscular HGB Conc 28 % (32-34); Mean Corpuscular Volume 70 fl (84-94); Monocytes # (Auto) 0.4 K/mm3 (0.0-0.8); Monocytes % (Auto) 9.1 % (0.0-7.3); Platelet Count 179 K/mm3 (140-440); Red Blood Count 5.05 M/mm3 (3.65-5.03)
[2018-10-05 17:30] LABS: Hematocrit 35.4 % (35.5-45.6); Hemoglobin 9.8 gm/dl (11.8-15.2); Red Cell Distribution Width 20.4 % (13.2-15.2)
[2018-10-05 17:48] LABS: Alanine Aminotransferase 24 units/L (7-56); Albumin 3.6 g/dL (3.9-5); BUN/Creatinine Ratio 20; Bilirubin,Direct 0.2 mg/dL (0-0.2); Blood Urea Nitrogen 12 mg/dL (9-20); Calcium 8.5 mg/dL (8.4-10.2); Hemolysis Index 15
--- NOTE | 2018-10-05 21:10 | Cat Scan Report ---
FINAL REPORT PROCEDURE: CT ABDOMEN PELVIS W CON TECHNIQUE: Computerized axial tomography of the abdomen and pelvis was performed after the IV inject ion of iodinated nonionic contrast. HISTORY: Abdominal Pain COMPARISON: No prior studies are available for comparison. FINDINGS: Visualized lower thorax: No significant abnormality. Liver: Normal size and attenuation. There is a 3 centimeter low-density area along the falciform liga ment suggesting focal fatty infiltration. Spleen: Normal size and attenuation. Gallbladder and biliary system: Normal. Pancreas: Normal. Adrenals: Normal. Kidneys: There are no kidney stones or ureteral stones. There is no hydronephrosis.. GI tract: There is no bowel obstruction, colitis or enteritis. The appendix is slightly thickened at approximately 7 millimeters. However there are no inflammatory changes. Clinical correlation suggeste d.. Lymph nodes and mesentery: Normal. Vasculature: There is complete occlusion of the left common and external iliac arteries and common fe moral artery. There is no aortic aneurysm. There is IVC filter.. Bladder: Normal. Reproductive organs: Normal. Peritoneum: There is no ascites or free air, abscess or adenopathy.. Musculoskeletal structures: No significant abnormality. Other: None. IMPRESSION: There is a 3 centimeter low-density area along the falciform ligament suggesting focal fatty infiltra tion. There are no kidney stones or ureteral stones. There is no hydronephrosis.. There is no bowel obstruction, colitis or enteritis. The appendix is slightly thickened at approximat saida 7 millimeters. However there are no inflammatory changes. Clinical correlation suggested.. There is complete occlusion of the left common and external iliac arteries and common femoral artery. There is no aortic aneurysm. There is IVC filter.. There is no ascites or free air, abscess or adenopathy..
[2018-10-05] MEDS ORDERED: HEPARIN 10,000 UNITS/10 ML IV ONE (21:41)
[2018-10-05 22:03] LABS: Hemoglobin 10.1 gm/dl (11.8-15.2)
[2018-10-05 22:04] LABS: Hematocrit 33.8 % (35.5-45.6)
[2018-10-05] MEDS: HEPARIN/ 0.45% NACL-25,000 UNIT/500 ML 25,000 UNIT/500 ML BAG IV SCH (22:04)
[2018-10-05 22:16] LABS: INR 1.54 (0.87-1.13)
[2018-10-05 22:17] LABS: Partial Thromboplastin Time 32.7 Sec. (24.2-36.6)
[2018-10-05] MEDS ORDERED: ZOFRAN IV PRN (22:30)
[2018-10-05] MEDS ORDERED: D50W (25GM) Syringe IV PRN (22:32)
[2018-10-05] MEDS ORDERED: TYLENOL PR PRN (22:34)
[2018-10-06] MEDS ORDERED: DILAUDID ONE (00:35)
[2018-10-06] MEDS: HumuLIN R SUB-Q SCH ×4 (00:43→11:14)
[2018-10-06] MEDS: DILAUDID IV PRN ×3 (01:00→10:12)
[2018-10-06] MEDS: HEPARIN/ 0.45% NACL-25,000 UNIT/500 ML 25,000 UNIT/500 ML BAG IV SCH ×2 (01:20→08:29)
[2018-10-06] MEDS ORDERED: KCL 10MEQ/100ML 10 MEQ/100 ML BAG IV ONE (05:08)
[2018-10-06] MEDS ORDERED: NACL 0.9% 500 ML 500 ML ONE (06:23)
[2018-10-06] MEDS ORDERED: NACL 0.9% 500 ML 500 ML IV SCH (07:00)
--- NOTE | 2018-10-06 07:37 | History and Physical Report ---
CHIEF COMPLAINT: Pain in the left leg and also pain in the left lower abdominal quadrant area. HISTORY OF PRESENT ILLNESS: The patient is a 52-year-old male who has been having pain in the left lower limb area extending up to the left lower quadrant abdominal area going on for 1 day. There is no history of injury or trauma. However, there is associated history of nausea or vomiting. The patient rated the pain as 7/10 and denies history of fever or chills. There is also no history of shortness of breath or chest pain. The patient has had arterial blockage in the past due to peripheral vascular disease and has amputation of lower extremity. The patient described the pain as relieved with rest and worse with movement. PAST MEDICAL HISTORY: Pertinent for hypertension, diabetes mellitus, deep vein thrombosis. COPD, peripheral vascular disease. PAST SURGICAL HISTORY: Pertinent for left above knee amputation and right below knee amputation with also bilateral lower extremity stent placement. FAMILY HISTORY: Noncontributory. SOCIAL HISTORY: The patient drinks alcohol, does not smoke, does not use illicit drugs. MEDICATIONS: The patient is on the following medications: Xanax 0.5 mg by mouth 3 times daily, Elavil 10 mg by mouth at bedtime, aspirin 81 mg by mouth daily, Neurontin 1200 mg by mouth every 8 hours, methadone 40 mg by mouth twice daily, Toprol XL 50 mg by mouth twice daily, tamsulosin or Flomax 0.4 mg by mouth daily, hydrochlorothiazide 12.5 mg by mouth daily, apixaban or Eliquis 5 mg by mouth twice daily, Roxicodone 30 mg by mouth every 4 hours as needed for pain, Bentyl 20 mg by mouth q.i.d. as needed for pain, Zofran under the tongue 4 mg every 8 hours as needed for nausea and vomiting, and Phenergan 25 mg by mouth every 6 hours as needed for nausea and vomiting. ALLERGIES: There are no known drug allergies. REVIEW OF SYSTEMS: CONSTITUTIONAL: There is no fever, no chills, no diaphoresis. HEENT: There is no headache or sore throat. CARDIOVASCULAR SYSTEM: There is no chest pain or orthopnea. RESPIRATORY SYSTEM: There is no shortness of breath or cough. GASTROINTESTINAL SYSTEM: Pain in the left lower abdominal quadrant area noted. Nausea and vomiting noted. No diarrhea, no constipation. NEUROLOGICAL SYSTEM: There is no numbness, no dizziness, no altered mental status. MUSCULOSKELETAL SYSTEM: Pain in the left lower limb area noted. No joint swelling. DERMATOLOGICAL SYSTEM: There is no skin rash or itching. GENITOURINARY SYSTEM: There is no dysuria, hematuria, or flank pain. Rest of system review is normal. PHYSICAL EXAMINATION: GENERAL: At the time of exam, the patient was found to be alert, oriented x 3, and not in acute distress. VITAL SIGNS: At the initial time of presentation shows normal temperature with pulse of 80, respiration 19, blood pressure 130/88. HEENT: Showed pupils to be equal, round, reactive to light and accommodating. Extraocular muscles are intact. NECK: Supple with no JVD or carotid bruit. CARDIOVASCULAR SYSTEM: Showed normal first and second heart sounds with no gallops or murmurs. RESPIRATORY SYSTEM: Showed good air entry on both sides of the lungs with no abnormal breath sounds. GASTROINTESTINAL SYSTEM: Show abdomen to be full, soft, nontender with no organomegaly or rigidity. NEUROLOGICAL: Shows no focal deficit. MUSCULOSKELETAL SYSTEM: Showed the patient had amputation involving both lower extremities with no tenderness in the remaining part of the lower extremities. DERMATOLOGICAL SYSTEM: There is no skin rash or ulceration. GENITOURINARY SYSTEM: There is no costovertebral angle tenderness. PERTINENT LABORATORY AND IMAGING STUDIES: The patient had CT of the abdomen and pelvis done and this shows a 3 cm low density area along the falciform ligament suggesting focal fatty infiltration. There are no kidney stones or ureteral stones found. There is no bowel obstruction, colitis, or enteritis. The appendix is slightly thickened at approximately 7 mm with no inflammatory changes and there is finding of complete occlusion of the left common and external iliac arteries and common femoral arteries. There is no aortic aneurysm. IVC filter is in place. There is no ascites or free air, abscess or adenopathy found. Lab results: The patient has CBC done with slightly low WBC of 4.1, low hemoglobin of 9.8 and low hematocrit of 35.4 with low MCV of 70, and normal platelets count. CBC differential showed elevated monocyte count of 9.1%. The patient's coagulation studies show elevated PT of 18.9 with INR of 1.54. The patient's chemistry shows low potassium level of 3.3 with elevated chloride level of 107.2 and normal sodium level and low CO2 of 21. Renal function test was unremarkable. Rest of the patient's chemistry shows elevated lipase level of 69 and unremarkable lactic acid level. DIAGNOSES: 1. Left iliac artery and left common femoral artery occlusion. 2. Abdominal pain. 3. Hypokalemia. PLAN OF ACTION: 1. The patient will be admitted to telemetry. 2. The patient will continue vascular surgical consult with the doctor consulted by the Emergency Room physician. 3. The patient will continue IV heparin started in the Emergency Room. 4. The patient will be on Accu-Chek q. 4 hours followed by low-dose sliding scale coverage using regular insulin. 5. The patient will be n.p.o. until seen by the vascular surgeon. 6. The patient will be on Tylenol 650 mg rectally every 4 hours for fever and headache and will be on IV Dilaudid 1 mg every 4 hours as needed for pain. 7. The patient will be on IV Zofran 4 mg every 8 hours for nausea and vomiting. 8. The patient will have potassium chloride replacement through IV potassium chloride K-rider 10 mEq in 100 mL of normal saline given by 3 doses. JOB# [id number] OCN/NTS MTDD
[2018-10-06] MEDS ORDERED: PNEUMOVAX 23 IM ONE (10:00)
--- NOTE | 2018-10-06 10:46 | Consultation ---
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 He was admitted at that time for nausea and vomiting, abdominal pain, left stump pain. He was discharged on Xarelto for oral anticoagulation and pain medications. She is stated that he couldn't afford those due to lack of insurance. She is previous hospitalizations with prolonged stay was at [facility] multiple months ago. CTA performed during his last hospitalization on September 15 2018 and at this time occlusive disease of left iliac and femoral systems and no signs of lower extremity stump ischemia. 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 He was placed on heparin drip on the admission and has unchanged normal platelet count. Past History Past Medical History: DVT, PVD Past Surgical History: Other (b/l amputations, IVC filter) Medications and Allergies Allergies Allergy/AdvReac Type Severity Reaction Status Date / Time No Known Allergies Allergy Unverified 09/15/18 10:10 Home Medications Medication Instructions Recorded Confirmed Last Taken Type ALPRAZolam [Xanax TAB] 0.5 mg PO TID PRN 09/15/18 10/06/18 09/09/18 History Amitriptyline [Elavil] 10 mg PO QHS 09/15/18 10/06/18 09/08/18 History Aspirin [Aspirin BABY CHEW TAB] 81 mg PO QDAY 09/15/18 10/06/18 09/09/18 History Gabapentin [Neurontin] 1,200 mg PO Q8HR 09/15/18 10/06/18 09/09/18 History Methadone [Dolophine] 40 mg PO BID 09/15/18 10/06/18 Unknown History Metoprolol Succinate [Toprol Xl] 50 mg PO BID 09/15/18 10/06/18 09/09/18 History Tamsulosin HCl [Flomax] 0.4 mg PO DAILY 09/15/18 10/06/18 09/09/18 History hydroCHLOROthiazide 12.5 mg PO DAILY 09/15/18 10/06/18 09/09/18 History [Hydrochlorothiazide] Apixaban [Eliquis] 5 mg PO BID 30 Days tablet 09/17/18 10/06/18 Unknown Rx Apixaban [Eliquis] 10 mg PO BID #28 tablet 09/17/18 10/06/18 Unknown Rx oxyCODONE [Roxicodone TAB] 30 mg PO Q4H PRN #7 tablet 09/17/18 10/06/18 Unknown Rx Dicyclomine [Bentyl] 20 mg PO QID PRN #20 tablet 09/25/18 10/06/18 Unknown Rx Ondansetron [Zofran Odt] 4 mg PO Q8HR PRN #20 tab.rapdis 09/25/18 10/06/18 Unknown Rx Promethazine [Phenergan TAB] 25 mg PO Q6HR PRN #20 tab 09/25/18 10/06/18 Unknown Rx Active Meds: Active Medications Acetaminophen (Tylenol) 650 mg AR Q4H PRN PRN Reason: Fever >101 Dextrose (D50w (25gm) Syringe) 50 ml IV PRN PRN PRN Reason: Hypoglycemia Hydromorphone HCl (Dilaudid) 1 mg IV Q4H PRN PRN Reason: Pain , Severe (7-10) Last Admin: 10/06/18 10:12 Dose: 1 mg Documented by: Heparin Sodium/Sodium Chloride (Heparin/ 0.45% Nacl-25,000 Unit/500 Ml) 25,000 unit in 500 mls @ 23 mls/hr IV TITR DEMARCUS; Protocol Last Admin: 10/06/18 08:29 Dose: 13.05 units/kg/hr, 20.13 mls/hr Documented by: Sodium Chloride (Nacl 0.9% 500 Ml) 500 mls @ 50 mls/hr IV DIRECT DEMARCUS Insulin Human Regular (Humulin R) 0 units SUB-Q Q4H DEMARCUS; Protocol Last Admin: 10/06/18 08:31 Dose: Not Given Documented by: Ondansetron HCl (Zofran) 4 mg IV Q8H PRN PRN Reason: Nausea And Vomiting Review of Systems All systems: negative (mentioned in HPI) Exam - Constitutional Vitals: Temp Pulse Resp BP Pulse Ox 98.2 F 64 18 131/78 98 10/06/18 07:38 10/06/18 07:38 10/06/18 07:38 10/06/18 07:38 10/06/18 07:38 General appearance: Present: no acute distress - Cardiovascular Rhythm: regular Heart Sounds: Present: S1 & S2 - Extremities Extremity abnormal: other (right below knee amputation, stump motor/sensory intact, no ischemia; left AKA stump motor/sensory intact, no signs of ischemia) Results - Labs CBC & Chem 7: 10/05/18 21:50 10/05/18 16:54 Labs: Abnormal lab results 10/05/18 10/05/18 10/05/18 Range/Units 16:54 16:54 21:44 WBC 4.1 L (4.5-11.0) K/mm3 RBC 5.05 H (3.65-5.03) M/mm3 Hgb 9.8 L (11.8-15.2) gm/dl Hct 35.4 L (35.5-45.6) % MCV 70 L (84-94) fl MCH 19 L (28-32) pg MCHC 28 L (32-34) % RDW 20.4 H (13.2-15.2) % [place] % (Auto) 9.1 H (0.0-7.3) % PT (12.2-14.9) Sec. INR (0.87-1.13) Heparin Anti-Xa Level (0.3-0.7) U.I./ml Potassium 3.3 L (3.6-5.0) mmol/L Chloride 107.2 H (98-107) mmol/L Carbon Dioxide 21 L (22-30) mmol/L Creatinine 0.6 L (0.8-1.5) mg/dL Lactic Acid 0.60 L (0.7-2.0) mmol/L Total Protein 6.0 L (6.3-8.2) g/dL Albumin 3.6 L (3.9-5) g/dL Lipase 69 H (13-60) units/L 10/05/18 10/05/18 10/06/18 Range/Units 21:50 21:50 04:14 WBC (4.5-11.0) K/mm3 RBC (3.65-5.03) M/mm3 Hgb 10.1 L (11.8-15.2) gm/dl Hct 33.8 L (35.5-45.6) % MCV (84-94) fl MCH (28-32) pg MCHC (32-34) % RDW (13.2-15.2) % [place] % (Auto) (0.0-7.3) % PT 18.9 H (12.2-14.9) Sec. INR 1.54 H (0.87-1.13) Heparin Anti-Xa Level 2.00 H (0.3-0.7) U.I./ml Potassium (3.6-5.0) mmol/L Chloride (98-107) mmol/L Carbon Dioxide (22-30) mmol/L Creatinine (0.8-1.5) mg/dL Lactic Acid (0.7-2.0) mmol/L Total Protein (6.3-8.2) g/dL Albumin (3.9-5) g/dL Lipase (13-60) units/L - Imaging and Cardiology CT scan - pelvis: report reviewed (unchanged left iliac occlusion from CTA of 09/15/2018) Assessment and Plan 52-year-old male with hypercoagulable state and known left iliofemoral occlusive disease without stump ischemia No plan for vascular intervention Patient needs to be on oral anticoagulation for lifetime. Resume his Xarelto or Eliquis, stop heparin drip 2h after medication given. Pain control. Patient was previously on methadone. suggest consulting hem/onc
[2018-10-06] MEDS ORDERED: ZOFRAN ODT PO PRN (12:07)
[2018-10-06] MEDS ORDERED: XANAX PO PRN (12:07)
[2018-10-06] MEDS ORDERED: BENTYL PO PRN (12:07)
[2018-10-06 12:31] LABS: Bilirubin,Urine NEG (Negative); Blood,Urine NEG (Negative); Color,Urine Yellow (Yellow); Mucus,Urine FEW /HPF; Protein,Urine <15 mg/dL mg/dL (Negative); WBC,Urine < 1.0 /HPF (0.0-6.0)
[2018-10-06] MEDS: PHENERGAN PO PRN (14:47)
[2018-10-06] MEDS: NEURONTIN PO SCH ×2 (14:48→21:35)
[2018-10-06] MEDS ORDERED: COUMADIN PO SCH ×2 (17:00)
[2018-10-06] MEDS: ROXICODONE PO PRN (17:34)
[2018-10-06] MEDS ORDERED: NORCO 10/325 PO PRN (18:04)
[2018-10-06] MEDS: LOVENOX SUB-Q SCH (21:35)
[2018-10-06] MEDS: DOLOPHINE PO SCH (21:35)
[2018-10-06] MEDS: ELAVIL PO SCH (21:37)
[2018-10-06] MEDS: LOPRESSOR PO SCH (21:37)
[2018-10-06] MEDS ORDERED: ELIQUIS PO SCH (22:00)
[2018-10-06] MEDS ORDERED: TOPROL XL PO SCH (22:00)
[2018-10-07] MEDS: ROXICODONE PO PRN (05:17)
[2018-10-07] MEDS: NEURONTIN PO SCH ×3 (05:17→22:20)
[2018-10-07 05:23] LABS: Hematocrit 39.1 % (35.5-45.6); Hemoglobin 11.4 gm/dl (11.8-15.2)
[2018-10-07 06:22] LABS: INR 1.14 (0.87-1.13)
[2018-10-07] MEDS: PHENERGAN PO PRN (07:50)
--- NOTE | 2018-10-07 07:56 | Progress Note ---
Assessment and Plan Assessment and plan: 52-year-old man with past medical history of hypertension diabetes, history of DVT, COPD, peripheral vascular disease. The patient presents with pain in his left leg and pain in his left lower abdominal quadrants. Sp amputation due to PAD in past. Pain began after he stopped taking eliquis as he could no longer afford it CT abdomen and pelvis shows no acute findings, there is complete occlusion of left common and external iliac arteries and common femoral artery Dx PAD -Abdominal pain Hypokalemia Hx of venous and arterial emboli non adherence to eliquis due to high cost DM -Opioid dependence -Malingering and pain medication seeking behavior -Acute toxic encephalopathy Plan -patient cannot eliquis, therefore started on lovenox bridge and warfarin, goal INR is 2 -Vasc surgery input appreciated no further workup is recommended, but the recommendation was to start patient on anticoagulants -K was repleted -SSI -After reviewing the patient's drug monitoring profile, it turns out that the patient had lied about his home medications. His last prescription for cultural substance was in March 2018 and was for tramadol 50 mg. He is not on methadone or oxycodone as he stated when his medication reconciliation was done. -Patient's somnolence due to taking methadone and Roxicodone. They were discontinued. The patient has just been put on Percocet 1 tab as needed which w ill be started after his mentation has improved History Interval history: Patient has been extremely drowsy today, Review of systems Constitutional: No fevers, no malaise, no joint pains CVS: No chest pain, no orthopnea, no dyspnea on exertion, no pedal edema GI: No abdominal pain, no diarrhea, no vomiting, no constipation Respiratory: No shortness of breath, no wheezing, no coughing Hospitalist Physical - Physical exam Narrative exam: General.: Appears well, no distress, nontoxic HEENT: Moist mucous membranes, extraocular muscles intact, no lymphadenopathy Neck: supple Cardiac: S1-S2 heard Lungs: clear to auscultation bilaterally Abdomen: soft , nontender, nondistended, bowel sounds positive Extremities: Left BKA, right AKA Skin: no rash or lesions Neurologic: no gross focal deficits Psych: calm, and cooperative - Constitutional Vitals: Temp Pulse Resp BP Pulse Ox 97.7 F 72 18 93/66 92 10/07/18 07:46 10/07/18 07:46 10/07/18 07:46 10/07/18 07:46 10/07/18 07:46 General appearance: Present: no acute distress Results - Labs CBC & Chem 7: 10/07/18 03:54 10/05/18 16:54 Labs: Laboratory Last Values WBC 4.1 K/mm3 (4.5-11.0) L 10/05/18 16:54 RBC 5.05 M/mm3 (3.65-5.03) H 10/05/18 16:54 Hgb 11.4 gm/dl (11.8-15.2) L 10/07/18 03:54 Hct 39.1 % (35.5-45.6) 10/07/18 03:54 MCV 70 fl (84-94) L 10/05/18 16:54 MCH 19 pg (28-32) L 10/05/18 16:54 MCHC 28 % (32-34) L 10/05/18 16:54 RDW 20.4 % (13.2-15.2) H 10/05/18 16:54 Plt Count 313 K/mm3 (140-440) 10/07/18 03:54 Lymph % (Auto) 28.8 % (13.4-35.0) 10/05/18 16:54 [place] % (Auto) 9.1 % (0.0-7.3) H 10/05/18 16:54 Eos % (Auto) 3.0 % (0.0-4.3) 10/05/18 16:54 Baso % (Auto) 0.9 % (0.0-1.8) 10/05/18 16:54 Lymph # 1.2 K/mm3 (1.2-5.4) 10/05/18 16:54 [place] # 0.4 K/mm3 (0.0-0.8) 10/05/18 16:54 Eos # 0.1 K/mm3 (0.0-0.4) 10/05/18 16:54 Baso # 0.0 K/mm3 (0.0-0.1) 10/05/18 16:54 Seg Neutrophils % 58.2 % (40.0-70.0) 10/05/18 16:54 Seg Neutrophils # 2.4 K/mm3 (1.8-7.7) 10/05/18 16:54 PT 15.0 Sec. (12.2-14.9) H 10/07/18 05:28 INR 1.14 (0.87-1.13) H 10/07/18 05:28 APTT 32.7 Sec. (24.2-36.6) 10/05/18 21:50 Heparin Anti-Xa Level 2.00 U.I./ml (0.3-0.7) H 10/06/18 04:14 Sodium 140 mmol/L (137-145) 10/05/18 16:54 Potassium 3.3 mmol/L (3.6-5.0) L 10/05/18 16:54 Chloride 107.2 mmol/L (98-107) H 10/05/18 16:54 Carbon Dioxide 21 mmol/L (22-30) L 10/05/18 16:54 Anion Gap 15 mmol/L 10/05/18 16:54 BUN 12 mg/dL (9-20) 10/05/18 16:54 Creatinine 0.6 mg/dL (0.8-1.5) L 10/05/18 16:54 Estimated GFR > 60 ml/min 10/05/18 16:54 BUN/Creatinine Ratio 20 % 10/05/18 16:54 Glucose 100 mg/dL (75-100) 10/05/18 16:54 POC Glucose 76 (70-105) 10/06/18 07:42 Lactic Acid 0.60 mmol/L (0.7-2.0) L 10/05/18 21:44 Calcium 8.5 mg/dL (8.4-10.2) 10/05/18 16:54 Total Bilirubin 1.00 mg/dL (0.1-1.2) 10/05/18 16:54 Direct Bilirubin 0.2 mg/dL (0-0.2) 10/05/18 16:54 Indirect Bilirubin 0.8 mg/dL 10/05/18 16:54 AST 16 units/L (5-40) 10/05/18 16:54 ALT 24 units/L (7-56) 10/05/18 16:54 Alkaline Phosphatase 47 units/L (35-129) 10/05/18 16:54 Total Protein 6.0 g/dL (6.3-8.2) L 10/05/18 16:54 Albumin 3.6 g/dL (3.9-5) L 10/05/18 16:54 Albumin/Globulin Ratio 1.5 % 10/05/18 16:54 Lipase 69 units/L (13-60) H 10/05/18 16:54 Urine Color Yellow (Yellow) 10/06/18 10:25 Urine Turbidity Clear (Clear) 10/06/18 10:25 Urine pH 7.0 (5.0-7.0) 10/06/18 10:25 Ur Specific [place] 1.044 (1.003-1.030) H 10/06/18 10:25 Urine Protein <15 mg/dl mg/dL (Negative) 10/06/18 10:25 Urine Glucose (UA) Neg mg/dL (Negative) 10/06/18 10:25 Urine Ketones Neg mg/dL (Negative) 10/06/18 10:25 Urine Blood Neg (Negative) 10/06/18 10:25 Urine Nitrite Neg (Negative) 10/06/18 10:25 Urine Bilirubin Neg (Negative) 10/06/18 10:25 Urine Urobilinogen 2.0 mg/dL (<2.0) 10/06/18 10:25 Ur Leukocyte Esterase Neg (Negative) 10/06/18 10:25 Urine WBC (Auto) < 1.0 /HPF (0.0-6.0) 10/06/18 10:25 Urine RBC (Auto) 2.0 /HPF (0.0-6.0) 10/06/18 10:25 Urine Mucus Few /HPF 10/06/18 10:25
--- NOTE | 2018-10-07 07:56 | Progress Note ---
Assessment and Plan Assessment and plan: 52-year-old man with past medical history of hypertension diabetes, history of DVT, COPD, peripheral vascular disease. The patient presents with pain in his left leg and pain in his left lower abdominal quadrants. Sp amputation due to PAD in past. Pain began after he stopped taking eliquis as he could no longer afford it CT abdomen and pelvis shows no acute findings, there is complete occlusion of left common and external iliac arteries and common femoral artery Dx PAD -Abdominal pain Hypokalemia Hx of venous and arterial emboli non adherence to eliquis due to high cost DM -Opioid dependence Plan -patient cannot afford eliquis, therefore started on lovenox bridge and warfarin, goal INR is 2 -Vasc surgery input appreciated no further workup is recommended, but the recommendation was to start patient on anticoagulants -K was repleted -SSI -Continue methadone, [place] when necessary History Interval history: Continues to complain of lower abdominal pain and bilateral lower extremity pain Review of systems Constitutional: No fevers, no malaise, no joint pains CVS: No chest pain, no orthopnea, no dyspnea on exertion, no pedal edema GI: No abdominal pain, no diarrhea, no vomiting, no constipation Respiratory: No shortness of breath, no wheezing, no coughing Hospitalist Physical - Physical exam Narrative exam: General.: Appears well, no distress, nontoxic HEENT: Moist mucous membranes, extraocular muscles intact, no lymphadenopathy Neck: supple Cardiac: S1-S2 heard Lungs: clear to auscultation bilaterally Abdomen: soft , nontender, nondistended, bowel sounds positive Extremities: Left AKA, R BKA Skin: no rash or lesions Neurologic: no gross focal deficits Psych: calm, and cooperative - Constitutional Vitals: Temp Pulse Resp BP Pulse Ox 97.7 F 72 18 93/66 92 10/07/18 07:46 10/07/18 07:46 10/07/18 07:46 10/07/18 07:46 10/07/18 07:46 General appearance: Present: no acute distress Results - Labs CBC & Chem 7: 10/07/18 03:54 10/05/18 16:54 Labs: Laboratory Last Values WBC 4.1 K/mm3 (4.5-11.0) L 10/05/18 16:54 RBC 5.05 M/mm3 (3.65-5.03) H 10/05/18 16:54 Hgb 11.4 gm/dl (11.8-15.2) L 10/07/18 03:54 Hct 39.1 % (35.5-45.6) 10/07/18 03:54 MCV 70 fl (84-94) L 10/05/18 16:54 MCH 19 pg (28-32) L 10/05/18 16:54 MCHC 28 % (32-34) L 10/05/18 16:54 RDW 20.4 % (13.2-15.2) H 10/05/18 16:54 Plt Count 313 K/mm3 (140-440) 10/07/18 03:54 Lymph % (Auto) 28.8 % (13.4-35.0) 10/05/18 16:54 [place] % (Auto) 9.1 % (0.0-7.3) H 10/05/18 16:54 Eos % (Auto) 3.0 % (0.0-4.3) 10/05/18 16:54 Baso % (Auto) 0.9 % (0.0-1.8) 10/05/18 16:54 Lymph # 1.2 K/mm3 (1.2-5.4) 10/05/18 16:54 [place] # 0.4 K/mm3 (0.0-0.8) 10/05/18 16:54 Eos # 0.1 K/mm3 (0.0-0.4) 10/05/18 16:54 Baso # 0.0 K/mm3 (0.0-0.1) 10/05/18 16:54 Seg Neutrophils % 58.2 % (40.0-70.0) 10/05/18 16:54 Seg Neutrophils # 2.4 K/mm3 (1.8-7.7) 10/05/18 16:54 PT 15.0 Sec. (12.2-14.9) H 10/07/18 05:28 INR 1.14 (0.87-1.13) H 10/07/18 05:28 APTT 32.7 Sec. (24.2-36.6) 10/05/18 21:50 Heparin Anti-Xa Level 2.00 U.I./ml (0.3-0.7) H 10/06/18 04:14 Sodium 140 mmol/L (137-145) 10/05/18 16:54 Potassium 3.3 mmol/L (3.6-5.0) L 10/05/18 16:54 Chloride 107.2 mmol/L (98-107) H 10/05/18 16:54 Carbon Dioxide 21 mmol/L (22-30) L 10/05/18 16:54 Anion Gap 15 mmol/L 10/05/18 16:54 BUN 12 mg/dL (9-20) 10/05/18 16:54 Creatinine 0.6 mg/dL (0.8-1.5) L 10/05/18 16:54 Estimated GFR > 60 ml/min 10/05/18 16:54 BUN/Creatinine Ratio 20 % 10/05/18 16:54 Glucose 100 mg/dL (75-100) 10/05/18 16:54 POC Glucose 76 (70-105) 10/06/18 07:42 Lactic Acid 0.60 mmol/L (0.7-2.0) L 10/05/18 21:44 Calcium 8.5 mg/dL (8.4-10.2) 10/05/18 16:54 Total Bilirubin 1.00 mg/dL (0.1-1.2) 10/05/18 16:54 Direct Bilirubin 0.2 mg/dL (0-0.2) 10/05/18 16:54 Indirect Bilirubin 0.8 mg/dL 10/05/18 16:54 AST 16 units/L (5-40) 10/05/18 16:54 ALT 24 units/L (7-56) 10/05/18 16:54 Alkaline Phosphatase 47 units/L (35-129) 10/05/18 16:54 Total Protein 6.0 g/dL (6.3-8.2) L 10/05/18 16:54 Albumin 3.6 g/dL (3.9-5) L 10/05/18 16:54 Albumin/Globulin Ratio 1.5 % 10/05/18 16:54 Lipase 69 units/L (13-60) H 10/05/18 16:54 Urine Color Yellow (Yellow) 10/06/18 10:25 Urine Turbidity Clear (Clear) 10/06/18 10:25 Urine pH 7.0 (5.0-7.0) 10/06/18 10:25 Ur Specific [place] 1.044 (1.003-1.030) H 10/06/18 10:25 Urine Protein <15 mg/dl mg/dL (Negative) 10/06/18 10:25 Urine Glucose (UA) Neg mg/dL (Negative) 10/06/18 10:25 Urine Ketones Neg mg/dL (Negative) 10/06/18 10:25 Urine Blood Neg (Negative) 10/06/18 10:25 Urine Nitrite Neg (Negative) 10/06/18 10:25 Urine Bilirubin Neg (Negative) 10/06/18 10:25 Urine Urobilinogen 2.0 mg/dL (<2.0) 10/06/18 10:25 Ur Leukocyte Esterase Neg (Negative) 10/06/18 10:25 Urine WBC (Auto) < 1.0 /HPF (0.0-6.0) 10/06/18 10:25 Urine RBC (Auto) 2.0 /HPF (0.0-6.0) 10/06/18 10:25 Urine Mucus Few /HPF 10/06/18 10:25
[2018-10-07] MEDS ORDERED: NON-FORMULARY (Hydrochlorothiazide [Hydrochlorothiazide] 12.5 MG) PO SCH (10:00)
[2018-10-07] MEDS: BABY ASPIRIN PO SCH (10:19)
[2018-10-07] MEDS: HCTZ PO SCH (10:19)
[2018-10-07] MEDS: DOLOPHINE PO SCH ×2 (10:19→12:22)
[2018-10-07] MEDS: LOVENOX SUB-Q SCH ×2 (10:19→22:19)
[2018-10-07] MEDS: FLOMAX PO SCH (10:19)
[2018-10-07] MEDS: LOPRESSOR PO SCH ×2 (10:19→22:20)
[2018-10-07] MEDS ORDERED: NARCAN 0.4 MG/1 ML IV PRN (12:12)
[2018-10-07] MEDS: COUMADIN PO SCH (17:20)
[2018-10-07] MEDS: ULTRAM PO PRN (17:21)
[2018-10-07] MEDS: ELAVIL PO SCH (22:20)
[2018-10-07] MEDS: ALUM-MAG HYDROX-SIMETH 200-200-20MG/5ML PO PRN (22:21)
[2018-10-08] MEDS: NEURONTIN PO SCH ×3 (05:17→21:25)
[2018-10-08] MEDS: ULTRAM PO PRN ×3 (05:17→21:24)
[2018-10-08 05:55] LABS: INR 1.61 (0.87-1.13)
[2018-10-08] MEDS: FLOMAX PO SCH (09:21)
[2018-10-08] MEDS: BABY ASPIRIN PO SCH (09:21)
[2018-10-08] MEDS: LOVENOX SUB-Q SCH ×2 (09:22→21:25)
[2018-10-08] MEDS: LOPRESSOR PO SCH ×2 (11:27→21:25)
[2018-10-08] MEDS: HCTZ PO SCH (11:27)
--- NOTE | 2018-10-08 11:46 | Vascular Lab Report ---
FINAL REPORT EXAM: VL VENOUS DUPLEX LE BILAT HISTORY: leg pain COMPARISON: Venous ultrasound performed on 09/17/2018 TECHNIQUE: Grayscale and Doppler imaging of the veins of the bilateral lower extremities was perform ed. FINDINGS: There is thrombus within the right upper and mid superficial femoral vein which is noncompressible. T here is also partial compression of the lower right superficial femoral vein and popliteal vein with internal echoes. Again seen are echogenicities in the left common femoral vein, superficial femoral vein and deep femo ral vein, which are only partially compressible. IMPRESSION: Occlusive deep venous thrombosis of the right upper and mid superficial femoral vein, increased since the previous study. Partially occlusive thrombus in the lower right superficial femoral vein and pop liteal vein. Partially occlusive thrombus in the left common femoral vein, superficial femoral vein, and deep femo ral vein. Findings were discussed with MIREILLE Hale at 11:45 a.m., Eastern standard time, on 10/08/2018.
--- NOTE | 2018-10-08 12:03 | Progress Note ---
Assessment and Plan Assessment and plan: 52-year-old man with past medical history of hypertension diabetes, history of DVT, COPD, peripheral vascular disease. The patient presents with pain in his left leg and pain in his left lower abdominal quadrants. Sp amputation due to PAD in past. Pain began after he stopped taking eliquis as he could no longer afford it CT abdomen and pelvis shows no acute findings, there is complete occlusion of left common and external iliac arteries and common femoral artery Bilat LE Duplex; Occlusive deep venous thrombosis of the right upper and mid superficial femoral vein, increased since the previous study. Partially occlusive thrombus in the lower right superficial femoral vein and popliteal vein. Partially occlusive thrombus in the left common femoral vein, superficial femoral vein, and deep femoral vein. Dx PAD -Abdominal pain Hypokalemia Hx of venous and arterial emboli non adherence to eliquis due to high cost DM -Opioid dependence -Malingering and pain medication seeking behavior -Acute toxic encephalopathy -Bilateral lower extremity DVT Plan -patient cannot eliquis, therefore started on lovenox bridge and warfarin, goal INR is 2 -Vasc surgery input appreciated no further workup is recommended, but the re commendation was to start patient on anticoagulants -K was repleted -SSI -After reviewing the patient's drug monitoring profile, it turns out that the patient had lied about his home medications. His last prescription for cultural substance was in March 2018 and was for tramadol 50 mg. He is not on methadone or oxycodone as he stated when his medication reconciliation was done. -Patient's was extremely somnolent after taking methadone and Roxicodone. They were discontinued. The patient has just been put on Percocet 1 tab prn History Interval history: He continues to complain of bilateral lower extremity pain Review of systems Constitutional: No fevers, no malaise, no joint pains CVS: No chest pain, no orthopnea, no dyspnea on exertion, no pedal edema GI: No abdominal pain, no diarrhea, no vomiting, no constipation Respiratory: No shortness of breath, no wheezing, no coughing Hospitalist Physical - Physical exam Narrative exam: General.: Appears well, no distress, nontoxic HEENT: Moist mucous membranes, extraocular muscles intact, no lymphadenopathy Neck: supple Cardiac: S1-S2 heard Lungs: clear to auscultation bilaterally Abdomen: soft , nontender, nondistended, bowel sounds positive Extremities: Left BKA, right AKA Skin: no rash or lesions Neurologic: no gross focal deficits Psych: calm, and cooperative - Constitutional Vitals: Temp Pulse Resp BP Pulse Ox 98.2 F 70 18 90/50 94 10/08/18 08:51 10/08/18 08:51 10/08/18 08:51 10/08/18 11:27 10/08/18 08:51 General appearance: Present: no acute distress Results - Labs CBC & Chem 7: 10/07/18 03:54 10/05/18 16:54 Labs: Laboratory Last Values WBC 4.1 K/mm3 (4.5-11.0) L 10/05/18 16:54 RBC 5.05 M/mm3 (3.65-5.03) H 10/05/18 16:54 Hgb 11.4 gm/dl (11.8-15.2) L 10/07/18 03:54 Hct 39.1 % (35.5-45.6) 10/07/18 03:54 MCV 70 fl (84-94) L 10/05/18 16:54 MCH 19 pg (28-32) L 10/05/18 16:54 MCHC 28 % (32-34) L 10/05/18 16:54 RDW 20.4 % (13.2-15.2) H 10/05/18 16:54 Plt Count 313 K/mm3 (140-440) 10/07/18 03:54 Lymph % (Auto) 28.8 % (13.4-35.0) 10/05/18 16:54 [place] % (Auto) 9.1 % (0.0-7.3) H 10/05/18 16:54 Eos % (Auto) 3.0 % (0.0-4.3) 10/05/18 16:54 Baso % (Auto) 0.9 % (0.0-1.8) 10/05/18 16:54 Lymph # 1.2 K/mm3 (1.2-5.4) 10/05/18 16:54 [place] # 0.4 K/mm3 (0.0-0.8) 10/05/18 16:54 Eos # 0.1 K/mm3 (0.0-0.4) 10/05/18 16:54 Baso # 0.0 K/mm3 (0.0-0.1) 10/05/18 16:54 Seg Neutrophils % 58.2 % (40.0-70.0) 10/05/18 16:54 Seg Neutrophils # 2.4 K/mm3 (1.8-7.7) 10/05/18 16:54 PT 19.6 Sec. (12.2-14.9) H 10/08/18 04:55 INR 1.61 (0.87-1.13) H 10/08/18 04:55 APTT 32.7 Sec. (24.2-36.6) 10/05/18 21:50 Heparin Anti-Xa Level 2.00 U.I./ml (0.3-0.7) H 10/06/18 04:14 Sodium 140 mmol/L (137-145) 10/05/18 16:54 Potassium 3.3 mmol/L (3.6-5.0) L 10/05/18 16:54 Chloride 107.2 mmol/L (98-107) H 10/05/18 16:54 Carbon Dioxide 21 mmol/L (22-30) L 10/05/18 16:54 Anion Gap 15 mmol/L 10/05/18 16:54 BUN 12 mg/dL (9-20) 10/05/18 16:54 Creatinine 0.6 mg/dL (0.8-1.5) L 10/05/18 16:54 Estimated GFR > 60 ml/min 10/05/18 16:54 BUN/Creatinine Ratio 20 % 10/05/18 16:54 Glucose 100 mg/dL (75-100) 10/05/18 16:54 POC Glucose 76 (70-105) 10/06/18 07:42 Lactic Acid 0.60 mmol/L (0.7-2.0) L 10/05/18 21:44 Calcium 8.5 mg/dL (8.4-10.2) 10/05/18 16:54 Total Bilirubin 1.00 mg/dL (0.1-1.2) 10/05/18 16:54 Direct Bilirubin 0.2 mg/dL (0-0.2) 10/05/18 16:54 Indirect Bilirubin 0.8 mg/dL 10/05/18 16:54 AST 16 units/L (5-40) 10/05/18 16:54 ALT 24 units/L (7-56) 10/05/18 16:54 Alkaline Phosphatase 47 units/L (35-129) 10/05/18 16:54 Total Protein 6.0 g/dL (6.3-8.2) L 10/05/18 16:54 Albumin 3.6 g/dL (3.9-5) L 10/05/18 16:54 Albumin/Globulin Ratio 1.5 % 10/05/18 16:54 Lipase 69 units/L (13-60) H 10/05/18 16:54 Urine Color Yellow (Yellow) 10/06/18 10:25 Urine Turbidity Clear (Clear) 10/06/18 10:25 Urine pH 7.0 (5.0-7.0) 10/06/18 10:25 Ur Specific [place] 1.044 (1.003-1.030) H 10/06/18 10:25 Urine Protein <15 mg/dl mg/dL (Negative) 10/06/18 10:25 Urine Glucose (UA) Neg mg/dL (Negative) 10/06/18 10:25 Urine Ketones Neg mg/dL (Negative) 10/06/18 10:25 Urine Blood Neg (Negative) 10/06/18 10:25 Urine Nitrite Neg (Negative) 10/06/18 10:25 Urine Bilirubin Neg (Negative) 10/06/18 10:25 Urine Urobilinogen 2.0 mg/dL (<2.0) 10/06/18 10:25 Ur Leukocyte Esterase Neg (Negative) 10/06/18 10:25 Urine WBC (Auto) < 1.0 /HPF (0.0-6.0) 10/06/18 10:25 Urine RBC (Auto) 2.0 /HPF (0.0-6.0) 10/06/18 10:25 Urine Mucus Few /HPF 10/06/18 10:25
[2018-10-08] MEDS: ALUM-MAG HYDROX-SIMETH 200-200-20MG/5ML PO PRN (18:07)
[2018-10-08] MEDS: COUMADIN PO SCH (18:07)
[2018-10-08] MEDS: ELAVIL PO SCH (21:24)
[2018-10-09] MEDS: ULTRAM PO PRN ×3 (05:45→20:10)
[2018-10-09] MEDS: NEURONTIN PO SCH ×3 (05:46→22:00)
[2018-10-09 06:24] LABS: Hematocrit 30.7 % (35.5-45.6); Hemoglobin 9.3 gm/dl (11.8-15.2)
[2018-10-09 06:24] LABS: INR 1.53 (0.87-1.13)
[2018-10-09] MEDS: BABY ASPIRIN PO SCH (10:38)
[2018-10-09] MEDS: FLOMAX PO SCH (10:38)
[2018-10-09] MEDS: HCTZ PO SCH (10:38)
[2018-10-09] MEDS: LOVENOX SUB-Q SCH ×2 (10:38→22:00)
[2018-10-09] MEDS: LOPRESSOR PO SCH ×2 (11:27→23:32)
--- NOTE | 2018-10-09 12:10 | Progress Note ---
Assessment and Plan Assessment and plan: 52-year-old man with past medical history of hypertension diabetes, history of DVT, COPD, peripheral vascular disease. The patient presents with pain in his left leg and pain in his left lower abdominal quadrants. Sp amputation due to PAD in past. Pain began after he stopped taking eliquis as he could no longer afford it CT abdomen and pelvis shows no acute findings, there is complete occlusion of left common and external iliac arteries and common femoral artery Bilat LE Duplex; Occlusive deep venous thrombosis of the right upper and mid superficial femoral vein, increased since the previous study. Partially occlusive thrombus in the lower right superficial femoral vein and popliteal vein. Partially occlusive thrombus in the left common femoral vein, superficial femoral vein, and deep femoral vein. Dx PAD -Abdominal pain Hypokalemia Hx of venous and arterial emboli non adherence to eliquis due to high cost DM -Opioid dependence -Malingering and pain medication seeking behavior -Acute toxic encephalopathy -Bilateral lower extremity DVT Plan -patient cannot eliquis, therefore started on lovenox bridge and warfarin, goal INR is 2 -Vasc surgery input appreciated no further workup is recommended, but the re commendation was to start patient on anticoagulants -K was repleted -SSI -After reviewing the patient's drug monitoring profile, it turns out that the patient had lied about his home medications. His last prescription for cultural substance was in March 2018 and was for tramadol 50 mg. He is not on methadone or oxycodone as he stated when his medication reconciliation was done. -Patient's was extremely somnolent after taking methadone and Roxicodone. They were discontinued. The patient has just been put on Percocet 1 tab prn History Interval history: He continues to complain of bilateral lower extremity pain Review of systems Constitutional: No fevers, no malaise, no joint pains CVS: No chest pain, no orthopnea, no dyspnea on exertion, no pedal edema GI: No abdominal pain, no diarrhea, no vomiting, no constipation Respiratory: No shortness of breath, no wheezing, no coughing Hospitalist Physical - Physical exam Narrative exam: General.: Appears well, no distress, nontoxic HEENT: Moist mucous membranes, extraocular muscles intact, no lymphadenopathy Neck: supple Cardiac: S1-S2 heard Lungs: clear to auscultation bilaterally Abdomen: soft , nontender, nondistended, bowel sounds positive Extremities: Left BKA, right AKA Skin: no rash or lesions Neurologic: no gross focal deficits Psych: calm, and cooperative - Constitutional Vitals: Temp Pulse Resp BP Pulse Ox 97.9 F 60 18 101/57 97 10/09/18 04:13 10/09/18 11:27 10/09/18 09:04 10/09/18 04:13 10/09/18 09:04 General appearance: Present: no acute distress Results - Labs CBC & Chem 7: 10/09/18 05:04 10/05/18 16:54 Labs: Laboratory Last Values WBC 4.1 K/mm3 (4.5-11.0) L 10/05/18 16:54 RBC 5.05 M/mm3 (3.65-5.03) H 10/05/18 16:54 Hgb 9.3 gm/dl (11.8-15.2) L 10/09/18 05:04 Hct 30.7 % (35.5-45.6) L D 10/09/18 05:04 MCV 70 fl (84-94) L 10/05/18 16:54 MCH 19 pg (28-32) L 10/05/18 16:54 MCHC 28 % (32-34) L 10/05/18 16:54 RDW 20.4 % (13.2-15.2) H 10/05/18 16:54 Plt Count 262 K/mm3 (140-440) 10/09/18 05:04 Lymph % (Auto) 28.8 % (13.4-35.0) 10/05/18 16:54 [place] % (Auto) 9.1 % (0.0-7.3) H 10/05/18 16:54 Eos % (Auto) 3.0 % (0.0-4.3) 10/05/18 16:54 Baso % (Auto) 0.9 % (0.0-1.8) 10/05/18 16:54 Lymph # 1.2 K/mm3 (1.2-5.4) 10/05/18 16:54 Fisher # 0.4 K/mm3 (0.0-0.8) 10/05/18 16:54 Eos # 0.1 K/mm3 (0.0-0.4) 10/05/18 16:54 Baso # 0.0 K/mm3 (0.0-0.1) 10/05/18 16:54 Seg Neutrophils % 58.2 % (40.0-70.0) 10/05/18 16:54 Seg Neutrophils # 2.4 K/mm3 (1.8-7.7) 10/05/18 16:54 PT 18.8 Sec. (12.2-14.9) H 10/09/18 05:06 INR 1.53 (0.87-1.13) H 10/09/18 05:06 APTT 32.7 Sec. (24.2-36.6) 10/05/18 21:50 Heparin Anti-Xa Level 2.00 U.I./ml (0.3-0.7) H 10/06/18 04:14 Sodium 140 mmol/L (137-145) 10/05/18 16:54 Potassium 3.3 mmol/L (3.6-5.0) L 10/05/18 16:54 Chloride 107.2 mmol/L (98-107) H 10/05/18 16:54 Carbon Dioxide 21 mmol/L (22-30) L 10/05/18 16:54 Anion Gap 15 mmol/L 10/05/18 16:54 BUN 12 mg/dL (9-20) 10/05/18 16:54 Creatinine 0.6 mg/dL (0.8-1.5) L 10/05/18 16:54 Estimated GFR > 60 ml/min 10/05/18 16:54 BUN/Creatinine Ratio 20 % 10/05/18 16:54 Glucose 100 mg/dL (75-100) 10/05/18 16:54 POC Glucose 76 (70-105) 10/06/18 07:42 Lactic Acid 0.60 mmol/L (0.7-2.0) L 10/05/18 21:44 Calcium 8.5 mg/dL (8.4-10.2) 10/05/18 16:54 Total Bilirubin 1.00 mg/dL (0.1-1.2) 10/05/18 16:54 Direct Bilirubin 0.2 mg/dL (0-0.2) 10/05/18 16:54 Indirect Bilirubin 0.8 mg/dL 10/05/18 16:54 AST 16 units/L (5-40) 10/05/18 16:54 ALT 24 units/L (7-56) 10/05/18 16:54 Alkaline Phosphatase 47 units/L (35-129) 10/05/18 16:54 Total Protein 6.0 g/dL (6.3-8.2) L 10/05/18 16:54 Albumin 3.6 g/dL (3.9-5) L 10/05/18 16:54 Albumin/Globulin Ratio 1.5 % 10/05/18 16:54 Lipase 69 units/L (13-60) H 10/05/18 16:54 Urine Color Yellow (Yellow) 10/06/18 10:25 Urine Turbidity Clear (Clear) 10/06/18 10:25 Urine pH 7.0 (5.0-7.0) 10/06/18 10:25 Ur Specific [place] 1.044 (1.003-1.030) H 10/06/18 10:25 Urine Protein <15 mg/dl mg/dL (Negative) 10/06/18 10:25 Urine Glucose (UA) Neg mg/dL (Negative) 10/06/18 10:25 Urine Ketones Neg mg/dL (Negative) 10/06/18 10:25 Urine Blood Neg (Negative) 10/06/18 10:25 Urine Nitrite Neg (Negative) 10/06/18 10:25 Urine Bilirubin Neg (Negative) 10/06/18 10:25 Urine Urobilinogen 2.0 mg/dL (<2.0) 10/06/18 10:25 Ur Leukocyte Esterase Neg (Negative) 10/06/18 10:25 Urine WBC (Auto) < 1.0 /HPF (0.0-6.0) 10/06/18 10:25 Urine RBC (Auto) 2.0 /HPF (0.0-6.0) 10/06/18 10:25 Urine Mucus Few /HPF 10/06/18 10:25 Nutrition/Malnutrition Assess - Dietary Evaluation Nutrition/Malnutrition Findings: Nutrition Notes Start: 10/08/18 14:32 Freq: Status: Active Protocol: Document 10/08/18 14:32 OL (Rec: 10/08/18 14:34 OL [id number]) Nutrition Notes Need for Assessment generated from: Education Initial or Follow up Brief Note Current Diet cardiac Pertinent Medications coumadin Subjective/Other Information RD screen for coumadin education. #1 Nutrition Diagnosis Food and nutrition-related knowledge deficit Etiology coumadin/vitamin K DNI As Evidenced by Signs and Symptoms pt. requesting coumadin DNI education Nutrition Intervention Teaching Recipient Patient Learning Readiness Good Teaching Methods Discussion Handout Response to Teaching Verbalize understanding Education Handouts Provided Vitamin K and medications Barriers to Learning No Barriers RD phone number provided Yes Patient aware of follow up options Yes Revisit per MD consult or patient Sign Off request:
[2018-10-09] MEDS ORDERED: COUMADIN PO SCH (17:00)
[2018-10-09] MEDS: ALUM-MAG HYDROX-SIMETH 200-200-20MG/5ML PO PRN (17:55)
[2018-10-09] MEDS: COUMADIN PO SCH (17:55)
[2018-10-09] MEDS ORDERED: PERCOCET 5/325 PO ONE (21:24)
[2018-10-09] MEDS: ELAVIL PO SCH (22:00)
[2018-10-10] MEDS: NEURONTIN PO SCH ×3 (05:49→21:46)
[2018-10-10] MEDS: ULTRAM PO PRN ×2 (05:49→16:56)
[2018-10-10 05:51] LABS: INR 1.68 (0.87-1.13)
[2018-10-10] MEDS: LOPRESSOR PO SCH ×2 (10:15→21:46)
[2018-10-10] MEDS: LOVENOX SUB-Q SCH ×2 (10:15→21:45)
[2018-10-10] MEDS: BABY ASPIRIN PO SCH (10:15)
[2018-10-10] MEDS: HCTZ PO SCH (10:15)
[2018-10-10] MEDS: FLOMAX PO SCH (10:15)
[2018-10-10] MEDS ORDERED: PERCOCET 5/325 PO ONE (11:00)
--- NOTE | 2018-10-10 12:25 | Progress Note ---
Assessment and Plan Assessment and plan: 52-year-old man with past medical history of hypertension diabetes, history of DVT, COPD, peripheral vascular disease. The patient presents with pain in his left leg and pain in his left lower abdominal quadrants. Sp amputation due to PAD in past. Pain began after he stopped taking eliquis as he could no longer afford it CT abdomen and pelvis shows no acute findings, there is complete occlusion of left common and external iliac arteries and common femoral artery Bilat LE Duplex; Occlusive deep venous thrombosis of the right upper and mid superficial femoral vein, increased since the previous study. Partially occlusive thrombus in the lower right superficial femoral vein and popliteal vein. Partially occlusive thrombus in the left common femoral vein, superficial femoral vein, and deep femoral vein. Dx PAD -Abdominal pain Hypokalemia Hx of venous and arterial emboli non adherence to eliquis due to high cost DM -Opioid dependence -Malingering and pain medication seeking behavior -Acute toxic encephalopathy -Bilateral lower extremity DVT Plan -patient cannot eliquis, therefore started on lovenox bridge and warfarin, goal INR is 2 -Vasc surgery input appreciated no further workup is recommended, but the re commendation was to start patient on anticoagulants -K was repleted -SSI -After reviewing the patient's drug monitoring profile, it turns out that the patient had lied about his home medications. His last prescription for cultural substance was in March 2018 and was for tramadol 50 mg. He is not on methadone or oxycodone as he stated when his medication reconciliation was done. -Patient's was extremely somnolent after taking methadone and Roxicodone. They were discontinued. The patient has just been put on Percocet 1 tab prn History Interval history: He continues to complain of bilateral lower extremity pain Review of systems Constitutional: No fevers, no malaise, no joint pains CVS: No chest pain, no orthopnea, no dyspnea on exertion, no pedal edema GI: No abdominal pain, no diarrhea, no vomiting, no constipation Respiratory: No shortness of breath, no wheezing, no coughing Hospitalist Physical - Physical exam Narrative exam: General.: Appears well, no distress, nontoxic HEENT: Moist mucous membranes, extraocular muscles intact, no lymphadenopathy Neck: supple Cardiac: S1-S2 heard Lungs: clear to auscultation bilaterally Abdomen: soft , nontender, nondistended, bowel sounds positive Extremities: Left BKA, right AKA Skin: no rash or lesions Neurologic: no gross focal deficits Psych: calm, and cooperative - Constitutional Vitals: Temp Pulse Resp BP Pulse Ox 98.2 F 55 L 16 116/74 96 10/10/18 08:28 10/10/18 08:54 10/10/18 08:28 10/10/18 08:28 10/10/18 08:28 General appearance: Present: no acute distress Results - Labs CBC & Chem 7: 10/09/18 05:04 10/05/18 16:54 Labs: Laboratory Last Values WBC 4.1 K/mm3 (4.5-11.0) L 10/05/18 16:54 RBC 5.05 M/mm3 (3.65-5.03) H 10/05/18 16:54 Hgb 9.3 gm/dl (11.8-15.2) L 10/09/18 05:04 Hct 30.7 % (35.5-45.6) L D 10/09/18 05:04 MCV 70 fl (84-94) L 10/05/18 16:54 MCH 19 pg (28-32) L 10/05/18 16:54 MCHC 28 % (32-34) L 10/05/18 16:54 RDW 20.4 % (13.2-15.2) H 10/05/18 16:54 Plt Count 262 K/mm3 (140-440) 10/09/18 05:04 Lymph % (Auto) 28.8 % (13.4-35.0) 10/05/18 16:54 [place] % (Auto) 9.1 % (0.0-7.3) H 10/05/18 16:54 Eos % (Auto) 3.0 % (0.0-4.3) 10/05/18 16:54 Baso % (Auto) 0.9 % (0.0-1.8) 10/05/18 16:54 Lymph # 1.2 K/mm3 (1.2-5.4) 10/05/18 16:54 [place] # 0.4 K/mm3 (0.0-0.8) 10/05/18 16:54 Eos # 0.1 K/mm3 (0.0-0.4) 10/05/18 16:54 Baso # 0.0 K/mm3 (0.0-0.1) 10/05/18 16:54 Seg Neutrophils % 58.2 % (40.0-70.0) 10/05/18 16:54 Seg Neutrophils # 2.4 K/mm3 (1.8-7.7) 10/05/18 16:54 PT 20.2 Sec. (12.2-14.9) H 10/10/18 04:52 INR 1.68 (0.87-1.13) H 10/10/18 04:52 APTT 32.7 Sec. (24.2-36.6) 10/05/18 21:50 Heparin Anti-Xa Level 2.00 U.I./ml (0.3-0.7) H 10/06/18 04:14 Sodium 140 mmol/L (137-145) 10/05/18 16:54 Potassium 3.3 mmol/L (3.6-5.0) L 10/05/18 16:54 Chloride 107.2 mmol/L (98-107) H 10/05/18 16:54 Carbon Dioxide 21 mmol/L (22-30) L 10/05/18 16:54 Anion Gap 15 mmol/L 10/05/18 16:54 BUN 12 mg/dL (9-20) 10/05/18 16:54 Creatinine 0.6 mg/dL (0.8-1.5) L 10/05/18 16:54 Estimated GFR > 60 ml/min 10/05/18 16:54 BUN/Creatinine Ratio 20 % 10/05/18 16:54 Glucose 100 mg/dL (75-100) 10/05/18 16:54 POC Glucose 76 (70-105) 10/06/18 07:42 Lactic Acid 0.60 mmol/L (0.7-2.0) L 10/05/18 21:44 Calcium 8.5 mg/dL (8.4-10.2) 10/05/18 16:54 Total Bilirubin 1.00 mg/dL (0.1-1.2) 10/05/18 16:54 Direct Bilirubin 0.2 mg/dL (0-0.2) 10/05/18 16:54 Indirect Bilirubin 0.8 mg/dL 10/05/18 16:54 AST 16 units/L (5-40) 10/05/18 16:54 ALT 24 units/L (7-56) 10/05/18 16:54 Alkaline Phosphatase 47 units/L (35-129) 10/05/18 16:54 Total Protein 6.0 g/dL (6.3-8.2) L 10/05/18 16:54 Albumin 3.6 g/dL (3.9-5) L 10/05/18 16:54 Albumin/Globulin Ratio 1.5 % 10/05/18 16:54 Lipase 69 units/L (13-60) H 10/05/18 16:54 Urine Color Yellow (Yellow) 10/06/18 10:25 Urine Turbidity Clear (Clear) 10/06/18 10:25 Urine pH 7.0 (5.0-7.0) 10/06/18 10:25 Ur Specific [place] 1.044 (1.003-1.030) H 10/06/18 10:25 Urine Protein <15 mg/dl mg/dL (Negative) 10/06/18 10:25 Urine Glucose (UA) Neg mg/dL (Negative) 10/06/18 10:25 Urine Ketones Neg mg/dL (Negative) 10/06/18 10:25 Urine Blood Neg (Negative) 10/06/18 10:25 Urine Nitrite Neg (Negative) 10/06/18 10:25 Urine Bilirubin Neg (Negative) 10/06/18 10:25 Urine Urobilinogen 2.0 mg/dL (<2.0) 10/06/18 10:25 Ur Leukocyte Esterase Neg (Negative) 10/06/18 10:25 Urine WBC (Auto) < 1.0 /HPF (0.0-6.0) 10/06/18 10:25 Urine RBC (Auto) 2.0 /HPF (0.0-6.0) 10/06/18 10:25 Urine Mucus Few /HPF 10/06/18 10:25 Nutrition/Malnutrition Assess - Dietary Evaluation Nutrition/Malnutrition Findings: Nutrition Notes Start: 10/08/18 14:32 Freq: Status: Active Protocol: Document 10/08/18 14:32 OL (Rec: 10/08/18 14:34 OL [id number]) Nutrition Notes Need for Assessment generated from: Education Initial or Follow up Brief Note Current Diet cardiac Pertinent Medications coumadin Subjective/Other Information RD screen for coumadin education. #1 Nutrition Diagnosis Food and nutrition-related knowledge deficit Etiology coumadin/vitamin K DNI As Evidenced by Signs and Symptoms pt. requesting coumadin DNI education Nutrition Intervention Teaching Recipient Patient Learning Readiness Good Teaching Methods Discussion Handout Response to Teaching Verbalize understanding Education Handouts Provided Vitamin K and medications Barriers to Learning No Barriers RD phone number provided Yes Patient aware of follow up options Yes Revisit per MD consult or patient Sign Off request:
[2018-10-10] MEDS ORDERED: PERCOCET 5/325 ONE (14:01)
[2018-10-10] MEDS: COUMADIN PO SCH (16:56)
[2018-10-10] MEDS ORDERED: COUMADIN PO SCH ×2 (17:00)
[2018-10-10] MEDS: ALUM-MAG HYDROX-SIMETH 200-200-20MG/5ML PO PRN (17:35)
[2018-10-10] MEDS: ELAVIL PO SCH (21:46)
[2018-10-10] MEDS: PERCOCET 5/325 PO PRN (21:48)
[2018-10-11] MEDS: NEURONTIN PO SCH (05:22)
[2018-10-11] MEDS: PERCOCET 5/325 PO PRN ×2 (05:23→13:37)
[2018-10-11 06:21] LABS: Hemoglobin 10.7 gm/dl (11.8-15.2)
[2018-10-11 06:27] LABS: INR 2.38 (0.87-1.13)
[2018-10-11 06:34] LABS: BUN/Creatinine Ratio 20; Blood Urea Nitrogen 12 mg/dL (9-20); Calcium 8.9 mg/dL (8.4-10.2); Hemolysis Index 1
--- NOTE | 2018-10-11 10:32 | Discharge Summary ---
Providers - Providers Date of Admission: 10/05/18 22:28 Attending physician: SHRUTHI TORRES MD 10/05/18 21:40 Consult to Physician [CONS] Stat Comment: spoke with Dr Espino at [id number] Consulting Provider: KATHARINA ESPINO Physician Instructions: Reason For Exam: art occu Primary care physician: GINO NOVOA Hospitalization Condition: Critical Hospital course: 52-year-old man with past medical history of hypertension diabetes, history of DVT, COPD, peripheral vascular disease. The patient presents with pain in his left leg and pain in his left lower abdominal quadrants. Sp amputation due to PAD in past. Pain began after he stopped taking eliquis as he could no longer afford it CT abdomen and pelvis shows no acute findings, there is complete occlusion of left common and external iliac arteries and common femoral artery Bilat LE Duplex; Occlusive deep venous thrombosis of the right upper and mid superficial femoral vein, increased since the previous study. Partially occlusive thrombus in the lower right superficial femoral vein and popliteal vein. Partially occlusive thrombus in the left common femoral vein, superficial femoral vein, and deep femoral vein. Dx PAD -Abdominal pain Hypokalemia Hx of venous and arterial emboli non adherence to eliquis due to high cost DM -Opioid dependence -Malingering and pain medication seeking behavior -Acute toxic encephalopathy -Bilateral lower extremity DVT Plan -patient cannot afford eliquis, therefore started on lovenox bridge and warfarin, until his INR was above 2 -Vasc surgery input appreciated no further workup is recommended, but the recommendation was to start patient on anticoagulants -K was repleted -SSI -After reviewing the patient's drug monitoring profile, it turns out that the patient had been dishonest about his home medications. His last prescription for controlled substance was in March 2018 and was for tramadol 50 mg. He is not on methadone or oxycodone as he stated when his medication reconciliation was done. -Patient's was extremely somnolent after taking methadone and Roxicodone. They were discontinued. The patient has just been put on Percocet 1 tab prn Disposition: -01 TO HOME OR SELFCARE Time spent for discharge: 33 mins Core Measure Documentation - Palliative Care Palliative Care/ Comfort Measures: Not Applicable - Core Measures Any of the following diagnoses?: DVT/PE - VTE Discharge Requirements Deep Vein Thrombosis/Pulmonary Embolism Present on Admission: Yes Has pt received <5 days of overlap therapy or INR<2.0: No Anticoagulant overlap therapy prescribed at discharge: No Contraindication No Overlap Therapy order at DC: Not Indicated Exam - Physical Exam Narrative exam: General.: Appears well, no distress, nontoxic HEENT: Moist mucous membranes, extraocular muscles intact, no lymphadenopathy Neck: supple Cardiac: S1-S2 heard Lungs: clear to auscultation bilaterally Abdomen: soft , nontender, nondistended, bowel sounds positive Extremities: Left BKA, right AKA Skin: no rash or lesions Neurologic: no gross focal deficits Psych: calm, and cooperative - Constitutional Vitals: Temp Pulse Resp BP Pulse Ox 98.5 F 71 16 109/71 95 10/11/18 08:34 10/11/18 08:34 10/11/18 08:34 10/11/18 08:34 10/11/18 08:34 Plan Follow up with: GINO NOVOA MD [Primary Care Provider] - 7 Days Forms: Warfarin Discharge Instruction Prescriptions: Amitriptyline [Elavil] 10 mg PO QHS #30 tablet Aspirin EC [Aspirin Enteric Coated TAB] 81 mg PO QDAY #30 tablet. Dicyclomine [Bentyl] 20 mg PO QID PRN #20 tablet PRN Reason: abdominal pain Gabapentin [Neurontin] 300 mg PO Q8HR #90 capsule hydroCHLOROthiazide [Hydrochlorothiazide] 12.5 mg PO DAILY #30 tablet Metoprolol [Lopressor TAB] 50 mg PO BID #60 tablet oxyCODONE /ACETAMINOPHEN [Percocet 5/325 mg] 2 tab PO Q6H PRN #30 tablet PRN Reason: Pain, Moderate (4-6) Tamsulosin HCl [Flomax] 0.4 mg PO DAILY #30 capsule Warfarin [Coumadin] 7.5 mg PO DAILY@1700 #30 tablet
[2018-10-11] MEDS: BABY ASPIRIN PO SCH (13:37)
[2018-10-11] MEDS: LOVENOX SUB-Q SCH (13:37)
[2018-10-11] MEDS: LOPRESSOR PO SCH (13:37)
[2018-10-11] MEDS: FLOMAX PO SCH (13:37)
[2018-10-11] MEDS: HCTZ PO SCH (13:37)
[2018-10-11 17:03] VITALS: BP 106/75
== END 2018-10-11 17:14 | disposition home or self-care (01) | DRG 299 ==
LOC: ED 15:54 → 4A 22:28
PROVIDERS: ADMIT Internal Medicine; ATTEND Internal Medicine
PROC: 3E0234Z Introduction of Serum, Toxoid and Vaccine into Muscle, Percutaneous Approach (ICD-10-PCS; principal; 2018-10-06)
DX: I82.411 Acute embolism and thrombosis of right femoral vein (principal); G92 Toxic encephalopathy; F11.20 Opioid dependence, uncomplicated; D68.59 Other primary thrombophilia; E11.51 Type 2 diabetes mellitus with diabetic peripheral angiopathy without gangrene; I70.292 Other atherosclerosis of native arteries of extremities, left leg; I82.431 Acute embolism and thrombosis of right popliteal vein; I10 Essential (primary) hypertension; J44.9 Chronic obstructive pulmonary disease, unspecified; D64.9 Anemia, unspecified; E87.6 Hypokalemia; G89.29 Other chronic pain; Z79.82 Long term (current) use of aspirin; Z89.612 Acquired absence of left leg above knee; Z89.511 Acquired absence of right leg below knee; Z23 Encounter for immunization
CPT/HCPCS: 36415; 74177; 80048; 80076; 81001; 82140; 82962; 83690; 85014; 85018; 85025; 85049; 85520; 85610; 85730; 87116; 90732; 93970; G0378; J1170; J1644; J1650; J2405; J3480; J7040; Q0169; Q9967

== ENCOUNTER 2018-10-12 18:52 | Emergency (ER) | payer SELFPAY ==
[2018-10-12] MEDS ORDERED: NORCO 10/325 PO ONE (19:36)
[2018-10-12] MEDS ORDERED: ZOFRAN ODT PO ONE (19:36)
[2018-10-12 20:05] LABS: Basophils # (Auto) 0.1 K/mm3 (0.0-0.1); Basophils % (Auto) 1.2 % (0.0-1.8); Eosinophils # (Auto) 0.1 K/mm3 (0.0-0.4); Lymphocytes # (Auto) 1.7 K/mm3 (1.2-5.4); Mean Corpuscular HGB Conc 31 % (32-34); Monocytes # (Auto) 0.4 K/mm3 (0.0-0.8); Monocytes % (Auto) 6.7 % (0.0-7.3); Platelet Count 476 K/mm3 (140-440); Red Blood Count 5.98 M/mm3 (3.65-5.03)
[2018-10-12 20:16] LABS: Hematocrit 39.8 % (35.5-45.6); Hemoglobin 12.2 gm/dl (11.8-15.2); Mean Corpuscular Volume 67 fl (84-94); Red Cell Distribution Width 20.1 % (13.2-15.2)
[2018-10-12 20:18] LABS: BUN/Creatinine Ratio 23; Blood Urea Nitrogen 16 mg/dL (9-20); Calcium 9.4 mg/dL (8.4-10.2); Hemolysis Index 10
[2018-10-12 20:21] LABS: Alanine Aminotransferase 13 units/L (7-56); Albumin 4.2 g/dL (3.9-5)
[2018-10-12 20:26] LABS: Bilirubin,Direct < 0.2 mg/dL (0-0.2)
[2018-10-12] MEDS ORDERED: ZOFRAN IV ONE (22:02)
[2018-10-12] MEDS ORDERED: NACL 0.9% 500 ML 500 ML IV ONE (22:04)
--- NOTE | 2018-10-12 22:09 | Emergency Department Report ---
ED General Adult HPI - General Chief complaint: Chest Pain Stated complaint: CHEST PAIN Time Seen by Provider: 10/12/18 19:22 Source: patient, EMS Mode of arrival: Stretcher Limitations: Physical Limitation - History of Present Illness Initial comments: Patient presents to the emergency department the chief complaint of chest pain that started this morning. The patient was recently discharged for DVTs of his lower extremities and states he is taking Eliquis. Patient also complains of some shortness of breath. -: Sudden Location: chest Radiation: non-radiation Severity scale (0 -10): 6 Quality: sharp Consistency: constant Improves with: none Worsens with: none Associated Symptoms: denies other symptoms Treatments Prior to Arrival: none - Related Data Previous Rx's Medication Instructions Recorded Last Taken Type Amitriptyline [Elavil] 10 mg PO QHS #30 tablet 10/11/18 Unknown Rx Aspirin EC [Aspirin Enteric Coated 81 mg PO QDAY #30 tablet. 10/11/18 Unknown Rx TAB] Dicyclomine [Bentyl] 20 mg PO QID PRN #20 tablet 10/11/18 Unknown Rx Gabapentin [Neurontin] 300 mg PO Q8HR #90 capsule 10/11/18 Unknown Rx Metoprolol [Lopressor TAB] 50 mg PO BID #60 tablet 10/11/18 Unknown Rx Tamsulosin HCl [Flomax] 0.4 mg PO DAILY #30 capsule 10/11/18 Unknown Rx Warfarin [Coumadin] 7.5 mg PO DAILY@1700 #30 tablet 10/11/18 Unknown Rx hydroCHLOROthiazide 12.5 mg PO DAILY #30 tablet 10/11/18 Unknown Rx [Hydrochlorothiazide] oxyCODONE /ACETAMINOPHEN [Percocet 2 tab PO Q6H PRN #30 tablet 10/11/18 Unknown Rx 5/325 mg] Allergies Allergy/AdvReac Type Severity Reaction Status Date / Time No Known Allergies Allergy Unverified 09/15/18 10:10 ED Review of Systems ROS: Stated complaint: CHEST PAIN Other details as noted in HPI Comment: All other systems reviewed and negative Constitutional: denies: chills, fever Eyes: denies: eye pain, eye discharge, vision change ENT: denies: ear pain, throat pain Respiratory: denies: cough, shortness of breath, wheezing Cardiovascular: denies: chest pain, palpitations Endocrine: no symptoms reported Gastrointestinal: denies: abdominal pain, nausea, diarrhea Genitourinary: denies: urgency, dysuria Musculoskeletal: denies: back pain, joint swelling, arthralgia Skin: denies: rash, lesions Neurological: denies: headache, weakness, paresthesias Psychiatric: denies: anxiety, depression Hematological/Lymphatic: denies: easy bleeding, easy bruising ED Past Medical Hx - Past Medical History Previous Medical History?: Yes Hx Hypertension: Yes Hx Diabetes: Yes Hx Deep Vein Thrombosis: Yes Hx Asthma: No Hx COPD: Yes Additional medical history: PVD, blood clots - Surgical History Additional Surgical History: left AKA. right BKA , bilat lower extremity stents - Social History Smoking Status: Never Smoker Substance Use Type: None - Medications Home Medications: Home Medications Medication Instructions Recorded Confirmed Last Taken Type Amitriptyline [Elavil] 10 mg PO QHS #30 tablet 10/11/18 10/12/18 Unknown Rx Aspirin EC [Aspirin Enteric Coated 81 mg PO QDAY #30 tablet. 10/11/18 10/12/18 Unknown Rx TAB] Dicyclomine [Bentyl] 20 mg PO QID PRN #20 tablet 10/11/18 10/12/18 Unknown Rx Gabapentin [Neurontin] 300 mg PO Q8HR #90 capsule 10/11/18 10/12/18 Unknown Rx Metoprolol [Lopressor TAB] 50 mg PO BID #60 tablet 10/11/18 10/12/18 Unknown Rx Tamsulosin HCl [Flomax] 0.4 mg PO DAILY #30 capsule 10/11/18 10/12/18 Unknown Rx Warfarin [Coumadin] 7.5 mg PO DAILY@1700 #30 tablet 10/11/18 10/12/18 Unknown Rx hydroCHLOROthiazide 12.5 mg PO DAILY #30 tablet 10/11/18 10/12/18 Unknown Rx [Hydrochlorothiazide] oxyCODONE /ACETAMINOPHEN [Percocet 2 tab PO Q6H PRN #30 tablet 10/11/18 10/12/18 Unknown Rx 5/325 mg] ED Physical Exam - General Limitations: Physical Limitation General appearance: alert, in no apparent distress - Head Head exam: Present: atraumatic, normocephalic - Eye Eye exam: Present: normal appearance, PERRL, EOMI - ENT ENT exam: Present: mucous membranes dry - Neck Neck exam: Present: normal inspection - Respiratory Respiratory exam: Present: normal lung sounds bilaterally. Absent: respiratory distress, wheezes, rales, rhonchi - Cardiovascular Cardiovascular Exam: Present: normal rhythm, tachycardia. Absent: systolic murmur, diastolic murmur, rubs, gallop - GI/Abdominal GI/Abdominal exam: Present: soft, normal bowel sounds. Absent: distended, tenderness - Rectal Rectal exam: Present: deferred - Extremities Exam Extremities exam: Present: other (the patient has a left AKA and a right BKA) - Back Exam Back exam: Present: normal inspection - Neurological Exam Neurological exam: Present: alert, oriented X3, CN II-XII intact. Absent: motor sensory deficit - Psychiatric Psychiatric exam: Present: normal affect, normal mood - Skin Skin exam: Present: warm, dry, intact, normal color. Absent: rash ED Course Vital Signs 10/12/18 10/12/18 10/12/18 19:24 19:26 20:01 Temperature 97.7 F Pulse Rate 101 H 106 H Respiratory 20 20 Rate Blood Pressure 116/80 Blood Pressure 116/80 [Left] O2 Sat by Pulse 97 97 Oximetry 10/12/18 10/12/18 10/12/18 21:00 22:01 23:01 Temperature Pulse Rate 111 H 96 H 92 H Respiratory 15 23 11 L Rate Blood Pressure 115/83 115/83 115/83 Blood Pressure [Left] O2 Sat by Pulse 98 98 Oximetry ED Medical Decision Making - Lab Data Result diagrams: 10/12/18 19:40 10/12/18 19:40 Lab Results 10/12/18 10/12/18 10/12/18 Range/Units 19:40 19:40 19:46 WBC 6.5 (4.5-11.0) K/mm3 RBC 5.98 H (3.65-5.03) M/mm3 Hgb 12.2 (11.8-15.2) gm/dl Hct 39.8 (35.5-45.6) % MCV 67 L (84-94) fl MCH 20 L (28-32) pg MCHC 31 L (32-34) % RDW 20.1 H (13.2-15.2) % Plt Count 476 H (140-440) K/mm3 Lymph % (Auto) 26.0 (13.4-35.0) % [place] % (Auto) 6.7 (0.0-7.3) % Eos % (Auto) 1.0 (0.0-4.3) % Baso % (Auto) 1.2 (0.0-1.8) % Lymph # 1.7 (1.2-5.4) K/mm3 [place] # 0.4 (0.0-0.8) K/mm3 Eos # 0.1 (0.0-0.4) K/mm3 Baso # 0.1 (0.0-0.1) K/mm3 Seg Neutrophils % 65.1 (40.0-70.0) % Seg Neutrophils # 4.2 (1.8-7.7) K/mm3 Sodium 138 (137-145) mmol/L Potassium 4.0 (3.6-5.0) mmol/L Chloride 104.7 (98-107) mmol/L Carbon Dioxide 19 L (22-30) mmol/L Anion Gap 18 mmol/L BUN 16 (9-20) mg/dL Creatinine 0.7 L (0.8-1.5) mg/dL Estimated GFR > 60 ml/min BUN/Creatinine Ratio 23 % Glucose 98 (75-100) mg/dL Calcium 9.4 (8.4-10.2) mg/dL Total Bilirubin 0.90 (0.1-1.2) mg/dL Direct Bilirubin < 0.2 (0-0.2) mg/dL Indirect Bilirubin 0.7 mg/dL AST 12 (5-40) units/L ALT 13 (7-56) units/L Alkaline Phosphatase 52 (35-129) units/L Troponin T < 0.010 (0.00-0.029) ng/mL Total Protein 7.7 (6.3-8.2) g/dL Albumin 4.2 (3.9-5) g/dL Albumin/Globulin Ratio 1.2 % 10/12/18 Range/Units 22:44 WBC (4.5-11.0) K/mm3 RBC (3.65-5.03) M/mm3 Hgb (11.8-15.2) gm/dl Hct (35.5-45.6) % MCV (84-94) fl MCH (28-32) pg MCHC (32-34) % RDW (13.2-15.2) % Plt Count (140-440) K/mm3 Lymph % (Auto) (13.4-35.0) % [place] % (Auto) (0.0-7.3) % Eos % (Auto) (0.0-4.3) % Baso % (Auto) (0.0-1.8) % Lymph # (1.2-5.4) K/mm3 [place] # (0.0-0.8) K/mm3 Eos # (0.0-0.4) K/mm3 Baso # (0.0-0.1) K/mm3 Seg Neutrophils % (40.0-70.0) % Seg Neutrophils # (1.8-7.7) K/mm3 Sodium (137-145) mmol/L Potassium (3.6-5.0) mmol/L Chloride (98-107) mmol/L Carbon Dioxide (22-30) mmol/L Anion Gap mmol/L BUN (9-20) mg/dL Creatinine (0.8-1.5) mg/dL Estimated GFR ml/min BUN/Creatinine Ratio % Glucose (75-100) mg/dL Calcium (8.4-10.2) mg/dL Total Bilirubin (0.1-1.2) mg/dL Direct Bilirubin (0-0.2) mg/dL Indirect Bilirubin mg/dL AST (5-40) units/L ALT (7-56) units/L Alkaline Phosphatase (35-129) units/L Troponin T < 0.010 (0.00-0.029) ng/mL Total Protein (6.3-8.2) g/dL Albumin (3.9-5) g/dL Albumin/Globulin Ratio % - Radiology Data Radiology results: report reviewed Critical care attestation.: If time is entered above; I have spent that time in minutes in the direct care of this critically ill patient, excluding procedure time. ED Disposition Clinical Impression: Nonspecific chest pain Disposition: TO HOME OR SELFCARE Is pt being admited?: No Does the pt Need Aspirin: No Condition: Stable Instructions: Chest Pain (ED), Noncardiac Chest Pain (ED) Additional Instructions: return if worse Referrals: GINO NOVOA MD [Primary Care Provider] - 3-5 Days [facility] [Provider Group] - 3-5 Days [facility] [Provider Group] - 3-5 Days Time of Disposition: 00:59
[2018-10-13] MEDS ORDERED: NORCO 10/325 PO ONE (00:23)
--- NOTE | 2018-10-13 00:53 | Cat Scan Report ---
FINAL REPORT PROCEDURE: CT ANGIO CHEST TECHNIQUE: Computerized tomographic angiography of the chest was performed after the IV injection of iodinated nonionic contrast including image processing. The image data was postprocessed using 2-dim ensional multiplanar reformatted (MPR) and 3-dimensional (MIP and/or volume rendered) techniques. HISTORY: sob/CP COMPARISON: No prior studies are available for comparison. FINDINGS: Heart and pericardium: Normal. Thoracic aorta: Normal. Pulmonary vasculature: Normal. Lymph nodes: No enlarged thoracic lymph nodes. Lungs: Mild atelectasis bilateral lower lungs. Acute infiltrate, effusion or pneumothorax. The centra l airway is patent. Pleural space: No effusion, thickening, or pneumothorax. Musculoskeletal structures: No significant abnormality. Upper abdominal structures: No significant abnormality. IMPRESSION: There is no evidence of pulmonary arterial emboli. Minimal atelectasis bilateral lower lungs is noted .
[2018-10-13] MEDS ORDERED: NARCAN 2 MG/2 ML ONE (01:59)
[2018-10-14 12:46] VITALS: BP 120/78
== END 2018-10-13 02:24 | disposition home or self-care (01) ==
LOC: ED 18:52
DX: R07.89 Other chest pain (principal); R06.02 Shortness of breath; I10 Essential (primary) hypertension; E11.9 Type 2 diabetes mellitus without complications; J44.9 Chronic obstructive pulmonary disease, unspecified; Z86.718 Personal history of other venous thrombosis and embolism
CPT/HCPCS: 36415; 71275; 80048; 80076; 84484; 85025; 93005; 96374; 99285; J2405; J7040; Q9967; J2310; Q0162

== ENCOUNTER 2018-10-17 18:28 | Emergency (ER) | payer SELFPAY ==
[2018-10-17 19:11] VITALS: BP 130/83
--- NOTE | 2018-10-17 19:12 | Emergency Department Report ---
Blank Doc - Documentation Documentation: 52 y.o. male presents left groin pain radiating to left thigh since this kalyanini ng. HX of recurrent DVT's. Patient states he took last eliquis Monday and to start coumadin but unable due to cost. Swelling to left groin, warm to touch. Duplex doppler and labs ordered [facility] for evaluation
[2018-10-17] MEDS ORDERED: PERCOCET 5/325 ONE (19:15)
[2018-10-17] MEDS ORDERED: PERCOCET 5/325 PO ONE (19:16)
--- NOTE | 2018-10-17 23:23 | Vascular Lab Report ---
FINAL REPORT EXAM: US VENOUS DUPLEX LOWER EXTREMITY UNILATERAL LEFT HISTORY: PAIN & SWELLING IN THE LT GROIN TO THE LT THIGH TECHNIQUE: Real-time color duplex sonography was performed of the deep venous systems of the bilater al lower extremities and images are submitted for interpretation. PRIORS: 10/05/2018 FINDINGS: Right: There is normal compressibility of the common and superficial femoral veins. Normal venous wav eforms are demonstrated. No echogenic thrombus is demonstrated. Left: There is a lack of complete compression in the common femoral superficial femoral veins. Dimini shed, partial flow is demonstrated in the common femoral, superficial femoral, greater saphenous and deep femoral veins. IMPRESSION: 1. Persistent partial thrombosis of the left common and superficial femoral veins. 2. No evidence the DVT on the right
--- NOTE | 2018-10-18 00:42 | Emergency Department Report ---
ED General Adult HPI - General Chief complaint: Extremity Injury, Lower Stated complaint: BILATERAL LEG PAIN Time Seen by Provider: 10/17/18 19:05 Source: patient, EMS Mode of arrival: Wheelchair Limitations: Physical Limitation - History of Present Illness Initial comments: Mr. Ortiz is a 52 yo male with hx of hypercoagulable disorder with right BKA and L BKA, PVD s/p multiple interventions, multiple DVTs, IVC and chronic pain presents from halfway with need for medication assistance. He has known persistent chronic left sided ileoo-femoral DVT. He denies injury. He has asked several times for pain medications. 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 Recently had prolonged hospital stay at [facility]. Case management at OSH arranged from stay at local halfway. Previously, he lived in rental home in [place], [place]. -: Gradual, week(s) (several) Severity scale (0 -10): 9 - Related Data Previous Rx's Medication Instructions Recorded Last Taken Type Amitriptyline [Elavil] 10 mg PO QHS #30 tablet 10/11/18 Unknown Rx Aspirin EC [Aspirin Enteric Coated 81 mg PO QDAY #30 tablet. 10/11/18 Unknown Rx TAB] Dicyclomine [Bentyl] 20 mg PO QID PRN #20 tablet 10/11/18 Unknown Rx Gabapentin [Neurontin] 300 mg PO Q8HR #90 capsule 10/11/18 Unknown Rx Metoprolol [Lopressor TAB] 50 mg PO BID #60 tablet 10/11/18 Unknown Rx Tamsulosin HCl [Flomax] 0.4 mg PO DAILY #30 capsule 10/11/18 Unknown Rx Warfarin [Coumadin] 7.5 mg PO DAILY@1700 #30 tablet 10/11/18 Unknown Rx hydroCHLOROthiazide 12.5 mg PO DAILY #30 tablet 10/11/18 Unknown Rx [Hydrochlorothiazide] oxyCODONE /ACETAMINOPHEN [Percocet 2 tab PO Q6H PRN #30 tablet 10/11/18 Unknown Rx 5/325 mg] Allergies Allergy/AdvReac Type Severity Reaction Status Date / Time No Known Allergies Allergy Unverified 09/15/18 10:10 ED Review of Systems ROS: Stated complaint: BILATERAL LEG PAIN Other details as noted in HPI Comment: All other systems reviewed and negative Constitutional: denies: fever, malaise Cardiovascular: denies: chest pain Gastrointestinal: denies: abdominal pain ED Past Medical Hx - Past Medical History Previous Medical History?: Yes Hx Hypertension: Yes Hx Diabetes: Yes Hx Deep Vein Thrombosis: Yes Hx Asthma: No Hx COPD: Yes Additional medical history: PVD - Surgical History Additional Surgical History: left AKA. right BKA , bilat lower extremity stents - Social History Smoking Status: Never Smoker Substance Use Type: None - Medications Home Medications: Home Medications Medication Instructions Recorded Confirmed Last Taken Type Amitriptyline [Elavil] 10 mg PO QHS #30 tablet 10/11/18 10/12/18 Unknown Rx Aspirin EC [Aspirin Enteric Coated 81 mg PO QDAY #30 tablet.dr 10/11/18 10/12/18 Unknown Rx TAB] Dicyclomine [Bentyl] 20 mg PO QID PRN #20 tablet 10/11/18 10/12/18 Unknown Rx Gabapentin [Neurontin] 300 mg PO Q8HR #90 capsule 10/11/18 10/12/18 Unknown Rx Metoprolol [Lopressor TAB] 50 mg PO BID #60 tablet 10/11/18 10/12/18 Unknown Rx Tamsulosin HCl [Flomax] 0.4 mg PO DAILY #30 capsule 10/11/18 10/12/18 Unknown Rx Warfarin [Coumadin] 7.5 mg PO DAILY@1700 #30 tablet 10/11/18 10/12/18 Unknown Rx hydroCHLOROthiazide 12.5 mg PO DAILY #30 tablet 10/11/18 10/12/18 Unknown Rx [Hydrochlorothiazide] oxyCODONE /ACETAMINOPHEN [Percocet 2 tab PO Q6H PRN #30 tablet 10/11/18 10/12/18 Unknown Rx 5/325 mg] ED Physical Exam - General Limitations: Physical Limitation General appearance: alert, in no apparent distress - Head Head exam: Present: atraumatic, normocephalic - Eye Eye exam: Present: normal appearance - ENT ENT exam: Present: mucous membranes moist - Neck Neck exam: Present: normal inspection. Absent: tenderness, meningismus - Respiratory Respiratory exam: Present: normal lung sounds bilaterally. Absent: respiratory distress, wheezes, rales, rhonchi - Cardiovascular Cardiovascular Exam: Present: regular rate, normal rhythm. Absent: systolic murmur, diastolic murmur, rubs, gallop - GI/Abdominal GI/Abdominal exam: Present: soft, normal bowel sounds. Absent: distended, tenderness, guarding, rebound - Rectal Rectal exam: Present: deferred - exam: Present: other (no hernia in groin region, large bilateral old surgical incisions) - Extremities Exam Extremities exam: Present: other (left AKA, right BKA) - Neurological Exam Neurological exam: Present: alert, oriented X3 - Psychiatric Psychiatric exam: Present: normal affect, normal mood - Skin Skin exam: Present: warm, dry, intact, normal color. Absent: rash ED Course Vital Signs 10/17/18 10/17/18 19:08 19:17 Temperature 97.7 F Pulse Rate 89 Respiratory 18 18 Rate Blood Pressure 130/83 O2 Sat by Pulse 98 Oximetry ED Medical Decision Making - Medical Decision Making Upon review of EMR, Mr. Ortiz has had 2 recent hospitalizations and several ED encounters in a short time. Unfortunately, he does not have financial resources to obtain his medications. He does have chronic persistent bilateral DVTs. Has been evaluated here by our vascular surgery service. Chronic pain is a concern for the patient. Need for medication assistance is his second concern. No need for hospitalization at this time. Awaiting case management in the morning for medication assistance. Otherwise he is stable for discharge. I will inform my colleague and the charge nurse of plan. Critical care attestation.: If time is entered above; I have spent that time in minutes in the direct care of this critically ill patient, excluding procedure time. ED Disposition Clinical Impression: Medication refill, Chronic pain, PVD (peripheral vascular disease) Disposition: - TO HOME OR SELFCARE Is pt being admited?: No Does the pt Need Aspirin: No Condition: Stable Instructions: Chronic Pain (ED)
[2018-10-18 01:21] LABS: INR 1.21 (0.87-1.13)
[2018-10-18] MEDS ORDERED: PERCOCET 5/325 ONE (01:29)
[2018-10-18] MEDS ORDERED: PERCOCET 5/325 PO ONE (01:31)
== END 2018-10-18 02:00 | disposition home or self-care (01) ==
LOC: ED 18:28
DX: G89.29 Other chronic pain (principal); I73.9 Peripheral vascular disease, unspecified; I10 Essential (primary) hypertension; E11.9 Type 2 diabetes mellitus without complications; J44.9 Chronic obstructive pulmonary disease, unspecified; Z86.718 Personal history of other venous thrombosis and embolism; Z76.0 Encounter for issue of repeat prescription
CPT/HCPCS: 36415; 85379; 85610

== ENCOUNTER 2018-11-30 15:14 | Emergency (ER) | payer MEDICAID ==
[2018-11-30 16:09] LABS: Hematocrit 35.9 % (35.5-45.6); Hemoglobin 11.2 gm/dl (11.8-15.2); Mean Corpuscular HGB Conc 31 % (32-34); Mean Corpuscular Volume 67 fl (84-94); Platelet Count 210 K/mm3 (140-440); Red Blood Count 5.35 M/mm3 (3.65-5.03); Red Cell Distribution Width 19.2 % (13.2-15.2)
[2018-11-30 16:11] LABS: Basophils # (Auto) 0.1 K/mm3 (0.0-0.1); Basophils % (Auto) 0.8 % (0.0-1.8); Eosinophils # (Auto) 0.6 K/mm3 (0.0-0.4); Eosinophils % (Auto) 6.8 % (0.0-4.3); Lymphocytes # (Auto) 2.3 K/mm3 (1.2-5.4); Lymphocytes % (Auto) 28.1 % (13.4-35.0); Monocytes # (Auto) 0.6 K/mm3 (0.0-0.8); Monocytes % (Auto) 7.4 % (0.0-7.3)
[2018-11-30 16:19] LABS: Alanine Aminotransferase 11 units/L (7-56); Albumin 4.1 g/dL (3.9-5); BUN/Creatinine Ratio 7; Blood Urea Nitrogen 5 mg/dL (9-20); Hemolysis Index 15
--- NOTE | 2018-11-30 16:35 | Emergency Department Report ---
ED Abdominal Pain HPI - General Chief Complaint: Abdominal Pain Stated Complaint: GROIN PAIN Time Seen by Provider: 11/30/18 16:05 Source: patient, EMS Mode of arrival: Stretcher Limitations: Physical Limitation - History of Present Illness Initial Comments: Patient is a 53-year-old male lives in some emergency with left lower quadrant abdominal pain that is radiating down his left leg. Patient states he has a little profound history of DVTs and peripheral vascular disease. Patient has required multiple amputations due to his vasculopathy's. Patient states the pain is a 9 out of 10. Patient states the pain is worse with movement and better with rest. Patient states that the pain is worsening. He states his pain started this morning. Patient also states he believes his left lower quadrant and swollen Patient states he hasn't taken his Coumadin for 3 weeks. MD Complaint: abdominal pain -: Sudden Location: LLQ Radiation: other Migration to: no migration Severity: severe Severity scale (0 -10): 9 Quality: stabbing Consistency: constant Improves With: rest Worsens With: movement Associated Symptoms: denies: nausea, vomiting, diarrhea, fever, chills, constipation, dysuria, hematemesis, hematochezia, melena, hematuria, anorexia, syncope - Related Data Previous Rx's Medication Instructions Recorded Last Taken Type Amitriptyline [Elavil] 10 mg PO QHS #30 tablet 10/11/18 Unknown Rx Aspirin EC [Aspirin Enteric Coated 81 mg PO QDAY #30 tablet. 10/11/18 Unknown Rx TAB] Dicyclomine [Bentyl] 20 mg PO QID PRN #20 tablet 10/11/18 Unknown Rx Gabapentin [Neurontin] 300 mg PO Q8HR #90 capsule 10/11/18 Unknown Rx Metoprolol [Lopressor TAB] 50 mg PO BID #60 tablet 10/11/18 Unknown Rx Tamsulosin HCl [Flomax] 0.4 mg PO DAILY #30 capsule 10/11/18 Unknown Rx hydroCHLOROthiazide 12.5 mg PO DAILY #30 tablet 10/11/18 Unknown Rx [Hydrochlorothiazide] oxyCODONE /ACETAMINOPHEN [Percocet 2 tab PO Q6H PRN #30 tablet 10/11/18 Unknown Rx 5/325 mg] Tramadol HCl [Ultram] 50 mg PO Q6HR PRN #12 tablet 11/30/18 Unknown Rx Warfarin [Coumadin] 7.5 mg PO DAILY@1700 #30 tablet 11/30/18 Unknown Rx Allergies Allergy/AdvReac Type Severity Reaction Status Date / Time No Known Allergies Allergy Verified 11/30/18 15:31 ED Review of Systems ROS: Stated complaint: GROIN PAIN Other details as noted in HPI Constitutional: denies: chills, fever Eyes: denies: eye pain, eye discharge, vision change ENT: denies: ear pain, throat pain Respiratory: denies: cough, shortness of breath, wheezing Cardiovascular: denies: chest pain, palpitations Endocrine: no symptoms reported Gastrointestinal: abdominal pain. denies: nausea, diarrhea Genitourinary: denies: urgency, dysuria Musculoskeletal: denies: back pain, joint swelling, arthralgia Skin: denies: rash, lesions Neurological: denies: headache, weakness, paresthesias Psychiatric: denies: anxiety, depression Hematological/Lymphatic: denies: easy bleeding, easy bruising ED Past Medical Hx - Past Medical History Previous Medical History?: Yes Hx Hypertension: Yes Hx Diabetes: Yes Hx Deep Vein Thrombosis: Yes Hx Asthma: No Hx COPD: Yes Additional medical history: PVD - Surgical History Past Surgical History?: Yes Additional Surgical History: left AKA. right BKA , bilat lower extremity stents - Family History Family history: no significant - Social History Smoking Status: Never Smoker Substance Use Type: None - Medications Home Medications: Home Medications Medication Instructions Recorded Confirmed Last Taken Type Amitriptyline [Elavil] 10 mg PO QHS #30 tablet 10/11/18 10/12/18 Unknown Rx Aspirin EC [Aspirin Enteric Coated 81 mg PO QDAY #30 tablet. 10/11/18 10/12/18 Unknown Rx TAB] Dicyclomine [Bentyl] 20 mg PO QID PRN #20 tablet 10/11/18 10/12/18 Unknown Rx Gabapentin [Neurontin] 300 mg PO Q8HR #90 capsule 10/11/18 10/12/18 Unknown Rx Metoprolol [Lopressor TAB] 50 mg PO BID #60 tablet 10/11/18 10/12/18 Unknown Rx Tamsulosin HCl [Flomax] 0.4 mg PO DAILY #30 capsule 10/11/18 10/12/18 Unknown Rx hydroCHLOROthiazide 12.5 mg PO DAILY #30 tablet 10/11/18 10/12/18 Unknown Rx [Hydrochlorothiazide] oxyCODONE /ACETAMINOPHEN [Percocet 2 tab PO Q6H PRN #30 tablet 10/11/18 10/12/18 Unknown Rx 5/325 mg] Tramadol HCl [Ultram] 50 mg PO Q6HR PRN #12 tablet 11/30/18 Unknown Rx Warfarin [Coumadin] 7.5 mg PO DAILY@1700 #30 tablet 11/30/18 Unknown Rx ED Physical Exam - General Limitations: Physical Limitation General appearance: alert, in no apparent distress - Head Head exam: Present: atraumatic, normocephalic - Eye Eye exam: Present: normal appearance - ENT ENT exam: Present: mucous membranes moist - Neck Neck exam: Present: normal inspection - Respiratory Respiratory exam: Present: normal lung sounds bilaterally. Absent: respiratory distress - Cardiovascular Cardiovascular Exam: Present: regular rate, normal rhythm. Absent: systolic murmur, diastolic murmur, rubs, gallop - GI/Abdominal GI/Abdominal exam: Present: soft, tenderness (left lower quadrant tenderness), normal bowel sounds - Rectal Rectal exam: Present: deferred - Extremities Exam Extremities exam: Present: normal inspection (bilateral amputations noted), full ROM, tenderness (left anterior thigh tenderness to palpation) - Back Exam Back exam: Present: normal inspection - Neurological Exam Neurological exam: Present: alert, oriented X3 - Psychiatric Psychiatric exam: Present: normal affect, normal mood - Skin Skin exam: Present: warm, dry, intact, normal color. Absent: rash ED Course Vital Signs 11/30/18 11/30/18 11/30/18 15:36 15:38 15:46 Temperature 97.9 F Pulse Rate 97 H Respiratory 16 Rate Blood Pressure 142/84 Blood Pressure 142/84 [Left] O2 Sat by Pulse 97 98 98 Oximetry 11/30/18 11/30/18 11/30/18 16:00 16:16 16:30 Temperature Pulse Rate Respiratory Rate Blood Pressure 125/83 126/83 121/77 Blood Pressure [Left] O2 Sat by Pulse 96 98 99 Oximetry 11/30/18 11/30/18 11/30/18 16:45 17:00 17:49 Temperature Pulse Rate Respiratory Rate Blood Pressure 142/84 115/76 124/72 Blood Pressure [Left] O2 Sat by Pulse 97 96 96 Oximetry 11/30/18 11/30/18 11/30/18 18:00 19:05 20:05 Temperature 97.8 F Pulse Rate 77 Respiratory 16 16 Rate Blood Pressure 128/82 Blood Pressure 128/84 [Left] O2 Sat by Pulse 94 97 Oximetry - Reevaluation(s) Reevaluation #1: Discussed all results with patient. Patient states his pain is better. Patient will be given a Lovenox shot. Patient agrees with plan of care and discharge. Patient stable for discharge. Patient given discharge instructions. Patient voiced understanding of all discharge instructions. Patient states he will start his Coumadin tomorrow morning. 11/30/18 20:28 11/30/18 20:36 - Consultations Consultation #1: Discussed case with vascular surgeon Dr. Cuevas. Mason states that the patient is stable for discharge needs to be given Lovenox and restarted on his Coumadin. 11/30/18 20:21 ED Medical Decision Making - Lab Data Result diagrams: 11/30/18 15:44 11/30/18 15:44 - Radiology Data Radiology results: report reviewed, image reviewed .PROCEDURE: VL VENOUS DUPLEX LE LT TECHNIQUE: Ultrasound deep venous system bilateral Lower extremity veins with pulse and color Doppler evaluation HISTORY: leg pain. COMPARISONS: No prior studies available for comparison. History is given of known deep venous thrombosis October 2018 FINDINGS: Within the right lower extremity there is vascular flow present in the common femoral vein with compressibility There is partial flow seen within the superficial femoral vein which may indicate chronic thrombosis with partial recanalization. There is normal sonographic appearance and flow within the popliteal vein Within the left lower extremity there is incomplete recanalization with partial flow present and incomplete compressibility from the common femoral through the popliteal vein. There is a left [id number] amputation and right below-knee amputation noted IMPRESSION: Partial thrombus present within the right superficial femoral vein and within the deep venous system left lower extremity. This may be chronic. Comparison with prior studies would be helpful for further evaluation if these become available - Medical Decision Making Patient is a 53-year-old male is emergency room with left leg and lower abdominal pain. Lower abdominal pain is secondary to the patient's left leg DVT. Patient's has a filter. Patient stopped his Coumadin 3 weeks ago. Patient developed a clot. Patient has multiple vasculopathy's and DVTs in the past. Patient needs to take his Coumadin. Patient will be restarted on Coumadin and restart his Coumadin in the morning. Patient also given a Lovenox shot in the ER. Patient given multiple pain medications. Patient's pain improved. Patient be discharged home. Vascular surgery consulted and agrees with plan of care and discharge. - Differential Diagnosis left leg DVT. leg pain. Abdominal pain. PAD Critical care attestation.: If time is entered above; I have spent that time in minutes in the direct care of this critically ill patient, excluding procedure time. ED Disposition Clinical Impression: Non-compliance, Leg pain, left, PAD (peripheral artery disease) DVT (deep venous thrombosis) Qualifiers: DVT location: lower extremity Affected thrombotic vein of extremity: unspecified vein of extremity Chronicity: acute Laterality: left Qualified Code(s): I82.402 - Acute embolism and thrombosis of unspecified deep veins of left lower extremity Abdominal pain Qualifiers: Abdominal location: left lower quadrant Qualified Code(s): R10.32 - Left lower quadrant pain Disposition: TO HOME OR SELFCARE Is pt being admited?: No Does the pt Need Aspirin: No Condition: Stable Instructions: Deep Venous Thrombosis (ED), Abdominal Pain (ED) Additional Instructions: Patient to follow up with primary care in 2-3 days. Patient to return to ER if condition worsens. Patient to take meds as directed. Patient to rest. Patient to start and continue his warfarin as directed. Patient to follow-up with his primary care in 2-3 days for an INR check. Patient's take Tylenol when necessary for pain Prescriptions: Warfarin [Coumadin] 7.5 mg PO DAILY@1700 #30 tablet Tramadol HCl [Ultram] 50 mg PO Q6HR PRN #12 tablet PRN Reason: Pain , Severe (7-10) Referrals: MATT HUMPHREYS MD [Primary Care Provider] - 2-3 Days Time of Disposition: 20:34
[2018-11-30] MEDS ORDERED: DILAUDID IV ONE ×2 (17:26→20:01)
--- NOTE | 2018-11-30 18:16 | Vascular Lab Report ---
PROCEDURE: VL VENOUS DUPLEX LE LT TECHNIQUE: Ultrasound deep venous system bilateral Lower extremity veins with pulse and color Doppler evaluation HISTORY: leg pain. COMPARISONS: No prior studies available for comparison. History is given of known deep venous thrombo sis October 2018 FINDINGS: Within the right lower extremity there is vascular flow present in the common femoral vein with compr essibility There is partial flow seen within the superficial femoral vein which may indicate chronic thrombosis with partial recanalization. There is normal sonographic appearance and flow within the popliteal vei n Within the left lower extremity there is incomplete recanalization with partial flow present and inco mplete compressibility from the common femoral through the popliteal vein. There is a left [id number] amputation and right below-knee amputation noted IMPRESSION: Partial thrombus present within the right superficial femoral vein and within the deep venous system left lower extremity. This may be chronic. Comparison with prior studies would be helpful for further evaluation if these become available This document is electronically signed by Chun Velez MD., November 30 2018 06:14:47 PM ET
[2018-11-30 19:42] VITALS: BP 128/84
--- NOTE | 2018-11-30 20:03 | Cat Scan Report ---
EXAM: CT ANGIO ABDOMEN PELVIS HISTORY: abd pain TECHNIQUE: Spiral axial CT images are obtained through the abdomen and pelvis with the administration of oral contrast and with the administration of intravenous contrast. Additional coronal and sagitta l reformatted images are reconstructed. COMPARISON: None available. FINDINGS: VASCULAR: There is mild aortic atherosclerosis, marked by calcified mural plaques. There is infrarena l/distal aortic left-sided partial luminal thrombosis (with up to 50-60%) luminal narrowing, with con tiguous occlusion/thrombosis of the left common iliac artery, internal iliac artery, and external te ac artery. There is partial luminal thrombosis of the right common iliac artery (with up to 50% lumin al stenosis). The celiac axis, SMA, GERTRUDE, and renal arteries are patent. An infrarenal IVC filter is n oted in situ. GASTROINTESTINAL TRACT: There are no stigmata of bowel obstruction, colitis or diverticulitis. A norm al-appearing appendix is seen. GENITOURINARY SYSTEM: The kidneys are unremarkable. There is no ureteral calculus or stigmata of obst ructive uropathy. The urinary bladder, seminal vesicles, prostate gland are grossly unremarkable for a non-dedicated exam. CT ABDOMEN: The liver, spleen, pancreas, adrenal glands, gallbladder and inferior vena cava are withi n normal limits for a noncontrast CT scan. There is no intra-abdominal or retroperitoneal lymphadeno siena, free fluid, or free air seen. No abdominal herniation is noted. CT PELVIS: The visualized bony structures are within normal limits. No pelvic sidewall or inguinal l ymphadenopathy is seen. No inguinal herniation is noted. No free fluid or free air is seen. LUNG BASES: The lung bases are clear. IMPRESSION: 1. Infrarenal/distal aortic left-sided partial luminal thrombosis (with up to 50-60%) luminal narrow ing, with contiguous occlusion/thrombosis of the left common iliac artery, internal iliac artery, and external iliac artery. 2. Partial luminal thrombosis of the right common iliac artery (with up to 50% luminal stenosis). 3. The celiac axis, SMA, GERTRUDE, and renal arteries are patent. 4. An infrarenal IVC filter is noted in situ. 5. No evidence for renal stone disease or obstructive uropathy. 6. No evidence for acute appendicitis, bowel obstruction, colitis or diverticulitis seen. 7. No free fluid, free air, mass lesions, or lymphadenopathy seen. This document is electronically signed by Adi Benjamin MD., November 30 2018 08:01:31 PM ET
[2018-11-30] MEDS ORDERED: DILAUDID ONE (20:05)
[2018-11-30] MEDS ORDERED: LOVENOX SUB-Q ONE ×2 (20:48→20:52)
[2018-11-30] MEDS ORDERED: LOVENOX SUB-Q SCH (22:00)
== END 2018-11-30 21:03 | disposition home or self-care (01) ==
LOC: ED 15:14
DX: I82.402 Acute embolism and thrombosis of unspecified deep veins of left lower extremity (principal); I73.9 Peripheral vascular disease, unspecified; Z91.14 Patient's other noncompliance with medication regimen; R10.32 Left lower quadrant pain; I10 Essential (primary) hypertension; E11.9 Type 2 diabetes mellitus without complications; J44.9 Chronic obstructive pulmonary disease, unspecified
CPT/HCPCS: 36415; 74174; 80053; 85025; 85379; 93971; 96372; 96374; 96376; 99284; J1170; J1650; Q9967